=== PATIENT | male | born 1970 | race Caucasian/White ===

== ENCOUNTER 2023-03-26 08:47 | Day surgery (SDC) | payer BC, SELFPAY ==
[2023-03-26 09:13] VITALS: BP 107/69; PULSE 59; RESP 16; TEMP 36.3; O2SAT 98; BMI 26.5
[2023-03-26] MEDS: Lactated Ringers 1,000 ML 15 ML IV (09:15)
--- NOTE | 2023-03-26 09:49 | HP.PCM_ITS ---
History and Physical Date of Admission: 03/26/23 Visit Reasons:?Gastroesophageal reflux disease (GERD) Chief Complaint: GERD Allergies No Known Allergies Allergy (Verified 12/14/22 11:05) PFSH Medical History? Cholecystectomy planned Surgical History? H/O colonoscopy Family History? Grandmother AsthmaMother Breast cancerFather DepressionGrandfather Parkinson disease Social History? Smoking Status:? Former smoker alcohol intake:? current details:? beer substance use type:? does not use what type of physical activity do you participate in:? yoga, weight training and other details: cardio frequency:? other details: 4-5 days a week HPI HPI HPI: 52-year-old gentleman is being referred by Dr. Ronda Paiz for surgical consultation regarding gastroesophageal reflux disease intermittent compromise surgical consult recommendations will return to him.? The patient's had a previous cholecystectomy in 2005.? I had a colonoscopy in 2019.? These were performed in [place].? The patient's current concern is long-term reflux symptoms.? This became worse subsequent to his cholecystectomy.? He is started using a probiotic.? He is not on any acid suppression medication Has had reflux symptoms for at least 5 years.? Heartburn symptoms.? Is not completely sure what triggers it but notices when he goes on vacation that they change in diet and perhaps increased use of alcohol can be a problem.? He is very physically fit.? He likes rowing.? He was a previous runner.? He also does weightlifting. He has no family history of esophagogastric or colonic disease ROS General General: No weight change, appetite, fatigue, colon cancer, breast cancer or weakness HEENT HEENT: No difficulty swallowing, eye injury, eye surgery, swollen glands or hoarseness Endo Endocrine: No thyroid disease, diabetes mellitus, thyroid cancer, Hair loss, heat intolerance or cold intolerance Skin Skin: No rash or changing moles Breast Breast: No left breast lump, right breast lump, nipple discharge, breast pain, abnormal mammogram, abnormal US or breast enlargement Musc Musculoskeletal: No back problems, arthritis, rheumatoid arthritis, gout or joint pain Cardio Cardiovascular: No murmur, pacemaker, heart disease, atrial fibrillation, high blood pressure, heart attack, heart stent, palpitations, shortness of breat with exertion or chest pain Psych Psychiatric: Yes anxiety; No depression or hearing voices Resp Respiratory: No shortness of breath, No sleep apnea, No cough, No COPD, No asthma, No emphysema and No wheezing Gastro Gastrointestinal: No abdominal pain, No nausea or vomiting, Yes diarrhea, No constipation, No blood in stool, Yes acid reflux, No hemorrhoids, No ulcers, No gallbladder problem and No black,tarry stools [place] Hematologic: No blood thinners, No blood disorders, No bleeding, No anemia and No blood clots Neuro Neurologic: No system reviewed and no additional complaints, except as documented, No as per HPI, No abnormal gait, No abnormal hearing, No abnormal movements, No abnormal speech, No behavioral changes, No burning sensations, No confusion, No convulsions, No disequilibrium, No dizziness, No localized weakness, No frequent falls, No headache(s), No lack of coordination, No loss of vision, No memory loss, No numbness, No other visual disturbances, No radicular pain, No restless legs, No sensory deficit, No syncope, No tingling, No tremor(s), No weakness and No other Exam Const General: cooperative, healthy appearing, comfortable and no acute distress [facility] Head: normal to inspection Eyes General: appearance normal, both eyes and all related structures Neck Neck: normal visual inspection Chest Chest palpation & inspection: normal inspection of the chest Resp Effort & Inspection: normal respiratory effort Auscultation: clear to auscultation bilaterally Cardio Rate: regular rate Rhythm: regular rhythm GI Inspection: normal to inspection Palpation: soft and no hepatosplenomegaly Musc Cervical Spine: normal cervical lordosis Skin General: no rashes or lesions noted Neuro General: patient alert, patient awake and patient oriented x3 Extrem General: normal to inspection and no calf tenderness Psych Appearance: grossly normal Assessment and Plan Assessment and Plan (1) Gastroesophageal reflux disease: ?Plan: I recommended the patient a esophagogastroduodenoscopy with possible biopsy or polypectomy as indicated.? He is aware of technique, benefit, risk and alternatives.? He said an opportunity to ask and have questions answered.? Very careful inspection for any type of reflux changes will be noted.? I appreciate the opportunity of assisting with the surgical care. Copy: Dr. Ronda Wesley M.D., F.A.C.S. I have examined the patient and the H&P has been reviewed. There are no clinical changes since date of exam. Justino Wesley M.D., F.A.C.S.
--- NOTE | 2023-03-26 10:00 | EGD_PTH ---
PATIENT: GIULIANO RASHID LOC: EN U#:[id number] AGE/SX: 52/M ROOM: RE03/26/[address]: Dr. Justino Wesley MD : 1970 BED: DIS: 03/26/2023 SPEC #: [id number] RECD: 03/26/23 13:15 STATUS: TAHIR MUNIRA #: [id number] JOHN: 03/26/23 10:[address]: Justino Wesley DEPT: SURGICAL PATHOLOGY RECD BY: Kelsy Jones ENTERED: 03/26/23 13:37 SP TYPE: EGD BIOPSY [facility] DR: Dr. Ronda Paiz MD Tissues: A - Duodenum, NOS B - Gastric mucous membrane C - Esophagus, NOS D - Esophagus, NOS Procedures: Surgery Specimen Level IV HEADER OPERATION: EGD ([facility]) and biopsies PRE-OP DIAGNOSIS: GERD TISSUE SUBMITTED: A ? Duodenum biopsy, B ? Antrum biopsy and H. pylori and path, C ? Distal esophagus biopsy, D ? Mid esophagus biopsy MICROSCOPIC DIAGNOSIS A. Duodenum, biopsy: A fragment of duodenal mucosa with focal villous congestion, gastric metaplasia and nonspecific chronic inflammation. B. Antrum, biopsy: Moderate chronic active gastritis. C. Distal esophagus, biopsy: Fragments of benign squamous epithelium. D. Mid esophagus, biopsy: Fragments of squamous mucosa with chronic inflammation. SJ:rg 03/29/2023 COMMENT B. The results of immunohistochemistry for Helicobacter pylori will be reported separately ([id number]). MICROSCOPIC DESCRIPTION Slides are reviewed. GROSS DESCRIPTION A - Received in fixative is one container labeled with the patient's name and designated duodenum biopsy. The specimen consists of one irregular fragment of light benson soft tissue that measures 0.3 x 0.3 x 0.1 cm. The specimen is totally submitted in one cassette. B - Received in fixative is one container labeled with the patient's name and designated antral biopsy. The specimen consists of one irregular fragment of light benson soft tissue that measures 0.6 x 0.2 x 0.1 cm. The specimen is totally submitted in one cassette. C - Received in fixative is one container labeled with the patient's name and designated distal esophagus biopsy. The specimen consists of two irregular fragments of light benson soft tissue that in aggregate measure 1.0 x 0.7 x 0.1 cm. The specimen is totally submitted in one cassette. D - Received in fixative is one container labeled with the patient's name and designated mid esophagus biopsy. The specimen consists of one irregular fragment of light benson soft tissue that measures 0.7 x 0.3 x 0.1 cm. The specimen is totally submitted in one cassette. / AM:raciel 03/26/2023 TC:2 CPT: 26795 x4
--- NOTE | 2023-03-26 10:00 | IMM_PTH ---
PATIENT: GIULIANO RASHID LOC: EN U#:[id number] AGE/SX: 52/M ROOM: RE03/26/[address]: Dr. Justino Wesley MD : 1970 BED: DIS: 03/26/2023 SPEC #: [id number] RECD: 03/26/23 13:38 STATUS: TAHIR REQ #: [id number] JOHN: 03/26/23 10:[address]: Justino Wesley DEPT: IMMUNOHISTOCHEMISTRY RECD BY: Allie Martin ENTERED: 03/26/23 13:39 SP TYPE: IMMUNO OTHR DR: Dr. Ronda Paiz MD Tissues: B - Stomach, NOS Procedures: H Pylori (initial) PHYSICIAN & INSTITUTION [place] [address] SPECIMEN INFORMATION: Tissue Source: B - Antrum Clinical Info: GERD Specimen Number: [id number] CPT code: 32731 METHODOLOGY: Deparaffinized sections of prefer/formalin-fixed tissue or PAP/DQ stained slides are incubated with monoclonal/polyclonal antibodies/oligonucleotide probes. Localization is made via biotin free immunoperoxidase method. Appropriate controls are performed and reacted as expected. Results on target cell population are indicated in the following table: RESULTS: ANTIBODY / CLONE RESULT Block B H Pylori (polyclonal) positive These tests were developed and their performance characteristics determined by [facility]. They may not have been cleared or approved by the U.S. Food and Drug Administration. The FDA has determined that such clearance or approval is not necessary. The above immunohistochemical/dualISH markers are ordered and reviewed by the Pathologist. INTERPRETATION: B. Antrum, biopsy: Positive for numerous Helicobacter pylori organisms. SJ:raciel 03/29/2023
--- NOTE | 2023-03-26 10:53 | OP.EGD_ITS ---
Patient Name: Malik Gallardo Procedure Date: 03/26/2023 10:32 AM Date of : 1970 Age: 52 Procedure: Upper GI endoscopy Indications: Suspected esophageal reflux Providers: Justino Wesley MD Referring MD: Justino Wesley MD Medicines: See the Anesthesia note for documentation of the administered medications Complications: No immediate complications. Procedure: Pre-Anesthesia Assessment: - Prior to the procedure, a History and Physical was performed, and patient medications and allergies were reviewed. The patient's tolerance of previous anesthesia was also reviewed. The risks and benefits of the procedure and the sedation options and risks were discussed with the patient. All questions were answered, and informed consent was obtained. Prior Anticoagulants: The patient has taken no previous anticoagulant or antiplatelet agents. ASA Grade Assessment: II - A patient with mild systemic disease. After reviewing the risks and benefits, the patient was deemed in satisfactory condition to undergo the procedure. After obtaining informed consent, the endoscope was passed under direct vision. Throughout the procedure, the patient's blood pressure, pulse, and oxygen saturations were monitored continuously. The gastroscope was introduced through the mouth, and advanced to the second part of duodenum. The upper GI endoscopy was accomplished without difficulty. The patient tolerated the procedure well. Scope In: 10:40:47 AM Scope Out: 10:47:33 AM Total Procedure Duration Time 0 hours 6 minutes 46 seconds Findings: The middle third of the esophagus was normal. Biopsies were taken with a cold forceps for histology. A small hiatal hernia was present. Biopsies were taken with a cold forceps for histology. Diffuse mildly erythematous mucosa without bleeding was found in the gastric antrum. Biopsies were taken with a cold forceps for histology. The examined duodenum was normal. Biopsies were taken with a cold forceps for histology. Impression: - Normal middle third of esophagus. Biopsied. - Small hiatal hernia. Biopsied. - Erythematous mucosa in the antrum. Biopsied. - Normal examined duodenum. Biopsied. Some bilious reflux was noted on the antrum of the stomach. We will await pathology. Consider utilizing sucralfate if needed for symptoms. Recommendation: - Discharge patient to home. - Resume previous diet. - Continue present medications. - Telephone my office for pathology results in 1 week. Procedure Code(s): --- Professional --- 50124, Esophagogastroduodenoscopy, flexible, transoral; with biopsy, single or multiple Diagnosis Code(s): --- Professional --- K44.9, Diaphragmatic hernia without obstruction or gangrene K31.89, Other diseases of stomach and duodenum CPT copyright 2017 [employer]. All rights reserved. The codes documented in this report are preliminary and upon consulting it architect review may be revised to meet current compliance requirements. Justino Wesley MD 03/26/2023 10:53:19 AM This report has been signed electronically. Number of Addenda: 0 Note Initiated On: 03/26/2023 10:32 AM
[2023-03-26 10:54] VITALS: BP 107/69; BP 98/66; PULSE 64; RESP 14; TEMP 36.2; O2SAT 96
--- NOTE | 2023-03-26 10:54 | OP.CCLET_ITS ---
03/26/2023 Ronda Paiz [facility] [address] [place] [address] Re : Upper GI endoscopy procedure for Malik Gallardo Dear Dr. Paiz This procedure was performed on Sunday, March 26, 2023. My impressions and recommendations are as follows: Impressions : - Normal middle third of esophagus. Biopsied. - Small hiatal hernia. Biopsied. - Erythematous mucosa in the antrum. Biopsied. - Normal examined duodenum. Biopsied. Some bilious reflux was noted on the antrum of the stomach. We will await pathology. Consider utilizing sucralfate if needed for symptoms. Recommendations : - Discharge patient to home. - Resume previous diet. - Continue present medications. - Telephone my office for pathology results in 1 week. My findings are described in the full procedure note, which is enclosed. If I can be of further assistance, please feel free to contact me at Doctor phone number(s): Work: . Sincerely, Justino Wesley MD 03/26/2023 10:53:19 AM This report has been signed electronically.
[2023-03-26 10:55] VITALS: BP 107/69; BP 99/66; PULSE 54; RESP 16; O2SAT 97
[2023-03-26 11:00] VITALS: BP 107/69; BP 98/67; PULSE 55; RESP 16; O2SAT 98
[2023-03-26 11:07] VITALS: BP 103/66; BP 107/69; PULSE 51; RESP 16; O2SAT 98
[2023-03-26 11:32] VITALS: BP 107/69
== END 2023-03-26 11:33 | disposition home or self-care (01) ==
LOC: EN 08:49 → AC 08:50
PROVIDERS: PCP Internal Medicine; Referring Provider Internal Medicine; Visit Provider Surgery
PROC: 0DJ08ZZ Inspection of Upper Intestinal Tract, Via Natural or Artificial Opening Endoscopic (ICD-10-PCS; CPT 43235; principal; 2023-03-26 09:55)
DX: K29.00 Acute gastritis without bleeding (principal); K21.00 Gastro-esophageal reflux disease with esophagitis, without bleeding; K44.9 Diaphragmatic hernia without obstruction or gangrene; K31.89 Other diseases of stomach and duodenum; Z87.891 Personal history of nicotine dependence
CPT/HCPCS: 43239; 88305; 88342; J7120; J2405

== ENCOUNTER → 2024-08-11 | Outpatient (CLI) | payer OTHER, SELFPAY ==
[2024-08-11 17:49] LABS: Absolute Lymphocyte Count 1.46 X10^3/uL (0.83-4.51); Basophil# 0.06 X10^3/uL; Basophil% 1.2 % (0-1); Eosinophil# 0.09 X10^3/uL; Eosinophils% 1.8 % (0-5); Lymphocyte # 1.46 X10^3/ul (0.83-4.51); Lymphocyte % 29.8 % (19-41); Mean Corp Hgb Conc 33.3 g/dL (32-36); Mean Corpuscular Hgb 28.6 pg (27.0-32.0); Mean Corpuscular Volume 85.7 fL (80-94); Mean Platelet Vol. 9.5 fl (6.2-12.0); Monocyte# 0.34 X10^3/uL; Monocyte% 6.9 % (0-10); NRBC Flagged by Analyzer 0 % (0-5); Neutrophil # 2.95 X10^3/uL (2.7-7.7); Neutrophil % 60.3 % (47-70); Platelet Count 352 K/mm3 (150-450); RBC Distribution Width CV 12.6 % (11.6-14.6); Red Blood Count 5.25 M/mm3 (4.6-6.2); White Blood Count 4.9 K/mm3 (4.4-11.0)
[2024-08-11 18:19] LABS: ALB/GLOB Ratio 1.1 RATIO (0.9-2.4); AST(SGOT) 18 U/L (15-37); Alanine Aminotransfer ALT/SGPT 27 U/L (16-61); Albumin, Serum 3.8 g/dL (3.2-5.0); Alkaline Phosphatase 70 U/L (45-117); Anion Gap 5 (5-15); BUN 15 mg/dL (7-18); BUN/Creat Ratio 14.4 RATIO (10-20); Calcium,Total 8.8 mg/dL (8.5-10.1); Chloride 107 mmol/L (98-107); Creatinine, Serum 1.04 mg/dL (0.70-1.30); EST Glomerular Filtration Rate 79 mL/min (>60); Est Glom Filt Rate - Afr Amer 96 mL/min (>60); Globulin 3.5 g/dL (2.2-4.2); Glucose 75 mg/dL (74-106); PSA,Total - Annual Screen 1.31 ng/mL (0.00-4.00); Potassium 3.7 mmol/L (3.5-5.1); Protein, Total 7.3 g/dL (6.4-8.2); Sodium Level 140 mmol/L (136-145); Uric Acid 7.3 mg/dL (3.5-7.2)
== END | disposition home or self-care (01) ==
LOC: MFPLAB 14:06
PROVIDERS: PCP Family Medicine; Visit Provider Family Medicine
DX: M10.9 Gout, unspecified (principal); Z80.42 Family history of malignant neoplasm of prostate
CPT/HCPCS: 36415; 80053; 84153; 84550; 85025; G0103

== ENCOUNTER 2025-03-04 23:30 | Emergency (ER) | payer OTHER, SELFPAY ==
[2025-03-04 23:32] VITALS: BP 150/96; PULSE 59; RESP 18; TEMP 36.8; O2SAT 100; BMI 28.4
--- NOTE | 2025-03-05 00:12 | ED.RN ---
Pt rang call light and asked when physician was going to be in to see him. This nurse to room, apologized for long wait, informed pt that doctor would be in as soon as possible. Pt rolled his eyes and states well I am in a lot of pain, I could be sitting at home doing this. Again, apologized for wait and informed pt of unusually busy department and physician was seeing patients in order of severity and arrival, and he would be seen as soon as physician is available. Pt again rolls eyes and states well if he can't seem to find his way in here within the next thirty minutes I am leaving. Responded to pt that is absolutely his choice and that he may leave if he wants to, and again apologized.
--- NOTE | 2025-03-05 00:25 | EX.ED.UPPERE ---
HPI History of Present Illness Chief Complaint: Upper Extremity Injury Informant: patient Narrative Narrative: Patient is a 54-year-old male who reports no significant past medical history. He states a few days ago he was using a mechanical saw. He states that he would steady the piece of wood with his right hand and hold the soft handle with his left. He states that there was no direct trauma to the left wrist and no sudden onset of pain. However over the last 2 to 3 days he has noticed increased swelling pain and redness of the left wrist. It is to the point where he cannot sleep secondary to the persistent pain and it hurts to have any type of covering over top of the joint. He denies any new medications or exposures. He denies any history of immunosuppression. He states however because of the persistent pain and swelling he presents for evaluation [facility] Medical History (Updated 03/05/25 @ 00:[address] Joselito Saucedo DO) Anxiety Alcohol use Gastric reflux Former smoker History of echocardiogram Home Medications ?Medication ?Instructions ?Recorded ?Last Taken ?Type oxycodone-acetaminophen 5 mg-325 1 tab PO Q6H PRN pain 3 days #12 03/05/25 Unknown Rx mg tablet (Percocet) tabs prednisone 10 mg tablet 10 mg PO DAILY #21 tabs 03/05/25 Unknown Rx Allergy/AdvReac Type Severity Reaction Status Date / Time No Known Allergies Allergy Verified 03/04/25 23:31 Family History Grandmother Asthma Mother Breast cancer Father Depression Grandfather Parkinson disease Surgical History Hx laparoscopic cholecystectomy H/O colonoscopy Social History Smoking Status: Former smoker alcohol intake: current details: beer substance use type: does not use what type of physical activity do you participate in: yoga, weight training and other details: cardio frequency: other details: 4-5 days a week ROS ROS ED Constitutional Constitutional ED: Denies chills or fever(s) ENT ENT ED: Denies sore throat Cardiovascular Cardiovascular: Denies chest pain Respiratory/Chest Respiratory/Chest: Denies cough or dyspnea Gastrointestinal Gastrointestinal: Denies abdominal pain, diarrhea, nausea or vomiting Musculoskeletal Musculoskeletal: Reports other Details: Positive left wrist pain Integumentary Reports other Details: Positive redness left wrist Neurologic Neurologic: Denies headache(s) or paresthesias Hematologic/Lymphatic Hematologic/Lymphatic: Denies easy bleeding or easy bruising EXAM Physical Exam Const Vital Signs: 03/04/25 23:32 Temperature 98.2 F Temperature Source Oral Pulse Rate 59 L Respiratory Rate 18 Blood Pressure 150/96 H Blood Pressure Mean 114 Pulse Ox 100 Oxygen Delivery Method Room Air Positive well nourished and well developed General Appearance ED: well developed HEENT HEENT Narrative: Normocephalic atraumatic Eyes PERRL and EOMs intact bilaterally Neck full ROM and supple Resp normal respiratory effort and clear to auscultation bilaterally Cardio regular rate and regular rhythm Extremity Extremity Narrative: Left upper extremity is neurovascularly intact; AIN/PIN are intact and normal. There is swelling of the left wrist mainly along the dorsal aspect with overlying erythema and warmth. No induration or fluctuance. No joint effusion noted. Active and passive range of motion is decreased secondary to pain. No lymphangitic streaking. No crepitus palpated. There is diffuse pain with light palpation of the left wrist. Remainder of the exam is normal Neuro oriented x3, CN's II-XII intact bilaterally and no sensory deficits noted Sensorium / Orientation: alert Psych mental status grossly normal Skin Skin Narrative: Soft tissue changes to the left wrist as documented above MDM MDM MDM Narrative Medical decision making narrative: Patient arrived to the ER hypertensive but otherwise with stable vitals. He reported gradual onset of pain to the left wrist over the last few days. 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 His history and exam is most consistent with gout. Without history of immunosuppression or fever I have low concern for cellulitis and by physical exam there is no abscess formation. Therefore this time I do not feel there is need for imaging or laboratory studies and patient can simply be treated secondary to his acute gout and is otherwise safe for discharge. History & Record Review Discussion w/independent historian: Patient Discharge Plan Triage Chief Complaint: Upper Extremity Injury ED Provider: Joselito Saucedo Dx/Rx/DC Orders Clinical Impression: Acute gout of left wrist Instructions: ED Gout, ED Gout Diet Prescriptions: New oxycodone-acetaminophen [Percocet] 5-325 mg tablet 1 tab PO Q6H PRN (Reason: pain) 3 Days Qty: 12 0RF prednisone 10 mg tablet 10 mg PO DAILY Qty: 21 0RF Rx Instructions: 6 pills by mouth day 1, 5 pills by mouth day 2, 4 pills by mouth day 3, 3 pills by mouth day 4, 2 pills by mouth day 5, 1 pill by mouth a 6 Primary Care Provider: Damián Rivas Referrals: Damián Rivas MD [Primary Care Provider] - Activity Restrictions/Additional Instructions: Your symptoms are consistent with gout. Please take the prescribed medication as directed to help resolve the inflammation. If you develop a fever of 100.4 or the redness continues to track up your arm or you have any further concerns please return to the ER for repeat evaluation Print Language: Pashto Disposition Disposition: Home, Self Care Discharge Date/Time: 03/05/25 01:04
[2025-03-05] MEDS: predniSONE 20 MG Tablet 60 MG PO (00:39)
== END 2025-03-05 01:04 | disposition home or self-care (01) ==
PROVIDERS: Emergency Provider Emergency Medicine; PCP Family Medicine; Visit Provider Emergency Medicine
DX: M10.032 Idiopathic gout, left wrist (principal); Z87.891 Personal history of nicotine dependence
CPT/HCPCS: 99282

== ENCOUNTER → 2025-03-22 | Outpatient (CLI) | payer OTHER, SELFPAY ==
--- OUTSIDE RECORDS SUMMARY | 2025-03-22 10:56 | XMS RPT_ITS | CCD ---
Author Organization [facility] CliniSysd Care Team Providers Care [employer] Officer Name Role Phone LUIS LOSON Admitting Unavailable LUIS OLSON Primary Care Unavailable LUIS OLSON Attending Unavailable GINA COREY Attending Unavailable RONY GAFFNEY UnavailLUIS Whitlock Primary Care Unavailable GINA COREY Admitting Unavailable LUIS OLSON Admitting Unavailable LUIS OLSON Primary Care Unavailable LUIS OLSON Attending Unavailable Casimiro MIMS, Ritika Serrano Unavailable [facility] Doctor, Out of Primary Care Provider [facility] Dr. Ronda Mckeon Attending Provider [phone] Dr. Ronda Paiz Primary Care Provider Dr. Ronda Paiz Referring Provider [phone] Dr. Luis Wesley Attending Provider Dr. Luis Wesley Other Provider Dr. Gina Rivas MD Primary Care Provider [phone] Dr. Joselito Saucedo DO Emergency Provider Gina iRvas Attending Unavailable Gina Rivas Primary Care Unavailable Joselito Saucedo Attending Unavailable Gina Rivas Primary Care Unavailable Medications Current Medications Medication Drug Class(es) Dates Sig (Normalized) Sig (Original) acetaminophen 325 mg / oxyCODONE hydrochloride 5 mg oral tablet (1 source) Opioid Agonist Start: 03-05-2025 take 1 tablet by mouth every six hours as needed for pain Oxycodone-Acetami nophen (Percocet) 5-325 mg tablet Active 1 {tbl} PO EVERY 6 HOURS as needed for pain 12 3 March 05, 2025 Start: 03-05-2025 take 1 tablet by randi th every six hours as needed for pain Oxycodone-Acetaminophen (Percocet) 5-325 mg tablet Active 1 {tbl} PO EVERY 6 HOURS as needed for pain 12 3 March 05, 2025 methylPREDNISolone 4 mg oral tablet (1 source) Corticosteroid Start: 11-24-2021 End: 11-30-2021 MEDROL 4 MG TABS Take 1 tablet by mouth as directed Take 6 tablets by mouth the first day, 5 tablets the following day... down to 1 tablet per day methylprednisolone [id number] Ritika Kirkpatrick PA-C predniSONE 10 mg oral tablet (1 source) Start: 03-05-2025 Prednisone 10 mg tablet Active 10 mg PO DAILY March 05, 2025 12:00am 6 pills by mouth day 1, 5 pills by mouth day 2, 4 pills by mouth day 3, 3 pills by mouth day 4, 2 pills by mouth day 5, 1 pill by mouth a 6 Completed/Discontinued Medications Medication Drug Class(es) Dates Sig (Normalized) Sig (Original) bismuth subsalicylate 525 mg oral tablet (1 source) Bismuth Start: 03-30-2023 End: 03-04-2025 take 8 tablets by mouth every twenty-four hours Bismuth Subsalicylate 525 mg tablet Discontinued 525 mg PO .QID 56 March 30, 2023 12:00am March 04, 2025 11:31pm do not exceed 8 doses in a 24 hour period lactobacillus acidophilus [id number] unt oral capsule (2 sources) Start: 03-23-2023 End: 03-04-2025 take 10 capsules by mouth once daily Lactobacillus Acidophilus (Probiotic) 10 billion cell Capsule Discontinued 52944 NMA PO DAILY March 23, 2023 12:00am March 04, 2025 11:31pm metroNIDAZOLE 250 mg oral tablet (1 source) Nitroimidazole Antimicrobial Start: 03-30-2023 End: 03-04-2025 take 1 tablet by mouth four times daily Metronidazole 250 mg tablet Discontinued 250 mg PO .qid 56 March 30, 2023 12:00am March 04, 2025 11:31pm omeprazole 40 mg delayed release oral capsule (1 source) Proton Pump Inhibitor Start: 03-30-2023 End: 03-04-2025 take 1 capsule by mouth twice daily Omeprazole 40 mg capsule,delayed release(DR/EC) Discontinued 40 mg PO TWICE A DAY 14 March 30, 2023 12:00am March 04, 2025 11:31pm tetracycline hydrochloride 500 mg oral capsule (1 source) Tetracycline-class Antimicrobial Start: 03-30-2023 End: 03-04-2025 take 1 capsule by mouth every six hours Tetracycline 500 mg capsule Discontinued 500 mg PO EVERY 6 HOURS 56 March 30, 2023 12:00am March 04, 2025 11:32pm Problems Active Problems Problem Classification Problem Date Documented Da te Episodic/Chronic Administrative/social admission (1 source) Persons encountering health services in other specified circumstances; Translations: [Other reasons for seeking consultation] 12-14-2022 Episodic Cardiac dysrhythmias (2 sources) Palpitations; Translations: [PALPITATIONS] Onset: 08-08-2020 Episodic Esophageal disorders (4 sources) Gastro-esophageal reflux disease with esophagitis; Translations: [Chronic reflux esophagitis] 12-14-2022 Chronic Gout and other crystal arthropathies (2 sources) 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; Translations: [Gout, unspecified] Onset: 09-06-2024 03-05-2025 Chronic Other congenital anomalies (1 source) Congenital metatarsus adductus; 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] Onset: 08-11-2017 08-11-2017 Chronic Other non-traumatic joint disorders (1 source) Pain in wrist; Translations: [Pain in left wrist] Onset: 11-24-2021 11-24-2021 Episodic Other non-traumatic joint disorders (1 source) Pain in left wrist; Translations: [Pain in left wrist] Onset: 03-09-2025 Episodic Past or Other Problems Problem Classification Problem Date Documented Date Episodic/Chronic Acquired foot deformities (2 sources) Acquired cavovarus deformity of right foot; Translations: [Other acquired deformities of right foot] Onset: 08-11-2017 08-11-2017 Episodic Acquired foot deformities (2 sources) Acquired cavovarus deformity of left foot; Translations: [Other acquired deformities of left foot] Onset: 08-11-2017 08-11-2017 Episodic Malaise and fatigue (1 source) Other malaise; Translations: [OTHER MALAISE] Onset: 11-15-2019 Episodic Other and unspecified benign neoplasm (1 source) Benign neoplasm of descending colon; Translations: [BENIGN NEOPLASM OF DESCENDING COLON] Onset: 04-04-2020 Episodic Other connective tissue disease (1 source) Metatarsalgia; Translations: [Metatarsalgia, left foot] Onset: 08-11-2017 08-11-2017 Episodic Other connective tissue disease (1 source) Disorder of hip; Translations: [Other symptoms and signs involving the musculoskeletal system] Onset: 08-11-2017 08-11-2017 Episodic Other screening for suspected conditions (not mental disorders or infectious disease) (6 sources) Encounter for screening for malignant neoplasm of colon; Translations: [Encounter for screening for other disorder] Onset: 11-15-2019 Episodic Unclassified (1 source) Problem Results Test Name Value Interpretation Reference Range Facility Emergency Department Summary on 03-05-2025 Emergency Department Summary [facility] Medical Records Department [address] [place] [address] Emergency Department Summary 03/05/25 MR#: [id number] Acct: [id number] Name: GIULIANO RASHID Rep #: [id number] : 1970 54 From: Joselito Saucedo DO PCP: Dr. Gina Rivas MD Status:DEP ER Location: ED HPI History of Present Illness Chief Complaint: Upper Extremity Injury Informant: patient Narrative Narrative: Patient is a 54-year-old male who reports no significant past medical history. He states a few days ago he was using a mechanical saw. He states that he would steady the piece of wood with his right hand and hold the soft handle with his left. He states that there was no direct trauma to the left wrist and no sudden onset of pain. However over the last 2 to 3 days he has noticed increased swelling pain and redness of the left wrist. It is to the point where he cannot sleep secondary to the persistent pain and it hurts to have any type of covering over top of the joint. He denies any new medications or exposures. He denies any history of immunosuppression. He states however because of the persistent pain and swelling he presents for evaluation [facility] Medical History (Updated 03/05/25 @ 00:[address] Joselito Saucedo DO) Anxiety Alcohol use Gastric reflux Former smoker History of echocardiogram Home Medications ???Medication ???Instructions ???Recorded ???Last Taken ???Type oxycodone-acetaminoph en 5 mg-325 1 tab PO Q6H PRN pain 3 days #12 0 6/02/25 Unknown Rx mg tablet (Percocet) tabs prednisone 10 mg tablet 10 mg PO DAILY #21 tabs 03/05/25 U nknown Rx Allergy/AdvReac Type Severity Reaction Status Date / Time No Known Allergies Allergy Verified 03/04/25 23:31 Family History Grandmother Asthma Mother Breast cancer Father Depression Grandfather Parkinson disease Surgical History Hx laparoscopic cholecystectomy H/O colonoscopy Social History Smoking Status: Former smoker alcohol intake: current details: beer substance use type: does not use what type of physical activity do you participate in: yoga, weight training and other details: cardio frequency: other details: 4-5 days a week ROS ROS ED Constitutional Constitutional ED: Denies chills or fever(s) ENT ENT ED: Denies sore throat Cardiovascular Cardiovascular: Denies chest pain Respiratory/Chest Respiratory/Chest: Denies cough or dyspnea Gastrointestinal Gastrointestinal: Denies abdominal pain, diarrhea, nausea or vomiting Musculoskeletal Musculoskeletal: Reports other Details: Positive left wrist pain Integumentary Reports other Details: Positive redness left wrist Neurologic Neurologic: Denies headache(s) or paresthesias Hematologic/Lymphatic Hematologic/Lymphatic : Denies easy bleeding or easy bruising EXAM Physical Exam Const Vital Signs: 03/04/25 23:32 Temperature 98.2 F Temperature Source Oral Pulse Rate 59 L Respiratory Rate 18 Blood Pressure 150/96 H Blood Pressure Mean 114 Pulse Ox 100 Oxygen Delivery Method Room Air Positive well nourished and well developed General Appearance ED: well developed HEENT HEENT Narrative: Normocephalic atraumatic Eyes PERRL and EOMs intact bilaterally Neck full ROM and supple Resp normal respiratory effort and clear to auscultation bilaterally Cardio regular rate and regular rhythm Extremity Extremity Narrative: Left upper extremity is neurovascularly intact; AIN/PIN are intact and normal. There is swelling of the left wrist mainly along the dorsal aspect with overlying erythema and warmth. No induration or fluctuance. No joint effusion noted. Active and passive range of motion is decreased secondary to pain. No lymphangitic streaking. No crepitus palpated. There is diffuse pain with light palpation of the left wrist. Remainder of the exam is normal Neuro oriented x3, CN's II-XII intact bilaterally and no sensory deficits noted Sensorium / Orientation: alert Psych mental status grossly normal Skin Skin Narrative: Soft tissue changes to the left wrist as documented above MDM MDM MDM Narrative Medical decision making narrative: Patient arrived to the ER hypertensive but otherwise with stable vitals. He reported gradual onset of pain to the left wrist over the last few days. 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 His history and exam is most consistent with gout. Without history of immunosuppression or fever I have low concer (more content not included)... Normal [facility] CBC W/Diff, Automatedon 11-0 -2023 Absolute Lymph 1.46 X10 3/uL Normal 0.83-4.51 [facility] Comment on above: Performed By: #### L 100.0100, L500.4050, L501.1400, L501.9910 #### [facility] [address] [place], [address] Absolute Neut 3.0 X10 3/uL Normal 2.0-7.7 [facility] Comment on above: Performed By: #### L 100.0100, L500.4050, L501.1400, L501.9910 #### [facility] [address] [place], [address] Basophils/100 WBC (Bld) 1.2 % High 0-1 [facility] Comment on above: Performed By: #### L 100.0100, L500.4050, L501.1400, L501.9910 #### [facility] [address] [place], [address] Eosinophils/100 WBC (Bld) 1.8 % Normal 0-5 [facility] Comment on above: Performed By: #### L 100.0100, L500.4050, L501.1400, L501.9910 #### [facility] [address] [place], [address] Erythrocyte distribution width (RBC) [Ratio] 12.6 % Normal 11.6-14.6 [facility] Comment on above: Performed By: #### L 100.0100, L500.4050, L501.1400, L501.9910 #### [facility] [address] [place], [address] Hematocrit (Bld) [Volume fraction] 45.0 % Normal 40-54 [facility] Comment on above: Performed By: #### L 100.0100, L500.4050, L501.1400, L501.9910 #### [facility] [address] [place], [address] Hemoglobin (Bld) [Mass/Vol] 15.0 g/dL Normal 13.0-16.5 [facility] Comment on above: Performed By: #### L 100.0100, L500.4050, L501.1400, L501.9910 #### [facility] [address] [place], [address] IG% 0.000 Normal 0.0-0.9 [facility] Comment on above: Result Comment: IG% - Immature Granulocytes (promyelocytes, myelocytes and metamyelocytes) > 1% indicates that a LEFT SHIFT is Present. Performed By: #### L 100.0100, L500.4050, L501.1400, L501.9910 #### [facility] [address] [place], [address] Lymphocytes/100 WBC (Bld) 29.8 % Normal 19-41 [facility] Comment on above: Performed By: #### L 100.0100, L500.4050, L501.1400, L501.9910 #### [facility] [address] [place], [address] MCH (RBC) [Entitic mass] 28.6 pg Normal 27.0-32.0 [facility] Comment on above: Performed By: #### L 100.0100, L500.4050, L501.1400, L501.9910 #### [facility] [address] [place], [address] MCHC (RBC) [Mass/Vol] 33.3 g/dL Normal 32-36 [facility] Comment on above: Performed By: #### L 100.0100, L500.4050, L501.1400, L501.9910 #### [facility] [address] [place], [address] MCV (RBC) [Entitic vol] 85.7 fL Normal 80-94 [facility] Comment on above: Performed By: #### L 100.0100, L500.4050, L501.1400, L501.9910 #### [facility] [address] [place], [address] Monocytes/100 WBC (Bld) 6.9 % Normal 0-10 [facility] Comment on above: Performed By: #### L 100.0100, L500.4050, L501.1400, L501.9910 #### [facility] [address] [place], [address] Neutrophils/100 WBC (Bld) 60.3 % Normal 47-70 [facility] Comment on above: Performed By: #### L 100.0100, L500.4050, L501.1400, L501.9910 #### [facility] [address] [place], [address] Nucleated RBC (Bld) [#/Vol] 0 10*3/uL Normal 0-5 [facility] Comment on above: Performed By: #### L 100.0100, L500.4050, L501.1400, L501.9910 #### [facility] [address] [place], [address] Platelet mean volume (Bld) [Entitic vol] 9.5 fL Normal 6.2-12.0 [facility] Comment on above: Performed By: #### L 100.0100, L500.4050, L501.1400, L501.9910 #### [facility] [address] [place], [address] Platelets (Bld) [#/Vol] 352 10*3/uL Normal 150-450 [facility] Comment on above: Performed By: #### L 100.0100, L500.4050, L501.1400, L501.9910 #### [facility] [address] [place], [address] RBC (Bld) [#/Vol] 5.25 10*6/uL Normal 4.6-6.2 [facility] Comment on above: Performed By: #### L 100.0100, L500.4050, L501.1400, L501.9910 #### [facility] [address] [place], [address] RDW SD 39.0 fl Normal 35.1-43.9 [facility] Comment on above: Performed By: #### L 100.0100, L500.4050, L501.1400, L501.9910 #### [facility] [address] [place], [address] WBC (Bld) [#/Vol] 4.9 10*3/uL Normal 4.4-11.0 [facility] Comment on above: Performed By: #### L 100.0100, L500.4050, L501.1400, L501.9910 #### [facility] [address] [place], [address] Comprehensive Metabolic Prof ilon 08-11-2024 Albumin [Mass/Vol] 3.8 g/dL Normal 3.2-5.0 [facility] Comment on above: Performed By: #### L 100.0100, L500.4050, L501.1400, L501.9910 #### [facility] [address] [place], [address] Albumin/Globulin [Mass ratio] 1.1 {ratio} Normal 0.9-2.4 [facility] Comment on above: Performed By: #### L 100.0100, L500.4050, L501.1400, L501.9910 #### [facility] [address] [place], [address] ALK P 70 U/L Normal 45-117 [facility] Comment on above: Performed By: #### L 100.0100, L500.4050, L501.1400, L501.9910 #### [facility] [address] [place], [address] ALT [Catalytic activity/Vol] 27 U/L Normal 16-61 [facility] Comment on above: Performed By: #### L 100.0100, L500.4050, L501.1400, L501.9910 #### [facility] [address] [place], [address] AST [Catalytic activity/Vol] 18 U/L Normal 15-37 [facility] Comment on above: Performed By: #### L 100.0100, L500.4050, L501.1400, L501.9910 #### [facility] [address] [place], [address] Bilirubin [Mass/Vol] 0.40 mg/dL Normal 0.20-1.00 [facility] Comment on above: Result Comment: For patients on eltrombopag therapy, use of Dimension [place] TBIL is not recommended. Performed By: #### L 100.0100, L500.4050, L501.1400, L501.9910 #### [facility] [address] [place], [address] BUN/CRE 14.4 RATIO Normal 10-20 [facility] Comment on above: Performed By: #### L 100.0100, L500.4050, L501.1400, L501.9910 #### [facility] [address] [place], [address] CA,Total 8.8 mg/dL Normal 8.5-10.1 [facility] Comment on above: Performed By: #### L 100.0100, L500.4050, L501.1400, L501.9910 #### [facility] [address] [place], [address] Chloride [Moles/Vol] 107 mmol/L Normal 98-107 [facility] Comment on above: Performed By: #### L 100.0100, L500.4050, L501.1400, L501.9910 #### [facility] [address] [place], [address] CO2 [Moles/Vol] 28.0 mmol/L Normal 21.0-32.0 [facility] Comment on above: Performed By: #### L 100.0100, L500.4050, L501.1400, L501.9910 #### [facility] [address] [place], [address] Creatinine [Mass/Vol] 1.04 mg/dL Normal 0.70-1.30 [facility] Comment on above: Result Comment: The validity of the calculated GFR GFRAA in patients over 70 years has not been determined. Clinical correlation is essential. Performed By: #### L 100.0100, L500.4050, L501.1400, L501.9910 #### [facility] [address] [place], [address] EST GFR - AA 96 mL/min Normal >60 [facility] Comment on above: Result Comment: Afri can Estonian GFR Calc Performed By: #### L 100.0100, L500.4050, L501.1400, L501.9910 #### [facility] [address] [place], [address] GAP 5 Normal 5-15 [facility] Comment on above: Performed By: #### L 100.0100, L500.4050, L501.1400, L501.9910 #### [facility] [address] [place], [address] GFR/1.73 sq M.predicted among non-blacks MDRD (S/P/Bld) [Vol rate/Area] 79 mL/min/{1.73_m2} Normal >60 [facility] Comment on above: Result Comment: Non- GFR Calc Performed By: #### L 100.0100, L500.4050, L501.1400, L501.9910 #### [facility] [address] [place], [address] Globulin (S) [Mass/Vol] 3.5 g/dL Normal 2.2-4.2 [facility] Comment on above: Performed By: #### L 100.0100, L500.4050, L501.1400, L501.9910 #### [facility] [address] [place], [address] Glucose [Mass/Vol] 75 mg/dL Normal 74-106 [facility] Comment on above: Performed By: #### L 100.0100, L500.4050, L501.1400, L501.9910 #### [facility] [address] [place], [address] Potassium [Moles/Vol] 3.7 mmol/L Normal 3.5-5.1 [facility] Comment on above: Performed By: #### L 100.0100, L500.4050, L501.1400, L501.9910 #### [facility] [address] [place], [address] Sodium [Moles/Vol] 140 mmol/L Normal 136-145 [facility] Comment on above: Performed By: #### L 100.0100, L500.4050, L501.1400, L501.9910 #### [facility] [address] [place], [address] T PROT 7.3 g/dL Normal 6.4-8.2 [facility] Comment on above: Performed By: #### L 100.0100, L500.4050, L501.1400, L501.9910 #### [facility] [address] [place], [address] Urea nitrogen [Mass/Vol] 15 mg/dL Normal 7-18 [facility] Comment on above: Performed By: #### L 100.0100, L500.4050, L501.1400, L501.9910 #### [facility] [address] [place], [address] PSA,Total - Annual Screenon 08-11-2024 PSA,TOT SCREEN 1.31 ng/mL Normal 0.00-4.00 [facility] Comment on above: Result Comment: This test was performed using the TPSA assay method for the [employer] chemistry system. Values obtained with different assay methods cannot be used interchangably. When changing PSA assays in the course of monitoring a patient, additional sequential testing should be carried out to confirm baseline values. Performed By: #### L 100.0100, L500.4050, L501.1400, L501.9910 #### [facility] [address] [place], [address] Uric Acidon 08-11-2024 URIC 7.3 mg/dL High 3.5-7.2 [facility] Comment on above: Result Comment: The drugs N-Acetylcysteine and Metamizole may falsely depress this assay. Performed By: #### L 100.0100, L500.4050, L501.1400, L501.9910 #### [facility] [address] [place], [address] Clinical Summary: Gladys noe 11-24-2021 [facility] [place] Invalid Interpretation Code [facility] - [facility] Work Phone: [facility] Surgical Pathology Depar tmenton 03-15-2020 [facility] Surgical Pathology Department Name GIULIANO RASHID Pathologist: SUDARSHAN PHILIP MD Date of Procedure: 03/15/2020 Date Received: 03/15/2020 Date Reported 03/18/2020 Submitting Physician: GINA COREY MD Location: [facility] Other External # [id number] FINAL DIAGNOSIS A. DESCENDING COLON, POLYPECTOMY: --TUBULAR ADENOMA. Electronically Signed Out By SUDARSHAN PHILIP MD/[facility] By the signature on this report, the individual or group listed as making the Final Interpretation/Diagno sis certifies that they have reviewed this case. Clinical History: Average risk screening Specimens Submitted As: A: DESCENDING COLON POLYP Other Case Numbers [id number] Gross Description: Received in formalin, labeled with the patient's name and hospital number and descending polyp, is a fragment of benson, soft tissue measuring 0.3 x 0.2 x 0.1 cm. The specimen is submitted in toto in one cassette. DPG dpg/03/16/2020 Normal [facility] Comment on above: Performed By: #### U HCS #### [facility] Surgical Pathology Department [address] [address] [facility] [address] CBC with Diffon 11-14-2019 Basophils (Bld) [#/Vol] 0.0 x(10)3/cumm Normal 0.0-0.1 [facility] Comment on above: Performed By: #### C BCDIFF #### [facility] [address] [place] [address] Basophils/100 WBC (Bld) 1.3 % High 0.0-1.0 [facility] Comment on above: Performed By: #### C BCDIFF #### [facility] [address] [place] [address] Eosinophils (Bld) [#/Vol] 0.0 x(10)3/cumm Normal 0.0-0.4 [facility] Comment on above: Performed By: #### C BCDIFF #### [facility] [address] [place] [address] Eosinophils/100 WBC (Bld) 1.2 % Normal 0.0-6.1 [facility] Comment on above: Performed By: #### C BCDIFF #### [facility] [address] [place] [address] 17882 Erythrocyte distribution width (RBC) [Ratio] 13.5 % Normal 11.1-15.3 [facility] Comment on above: Performed By: #### C BCDIFF #### [facility] [address] [place] [address] 26312 Hematocrit (Bld) [Volume fraction] 45.8 % Normal 37.6-50.6 [facility] Comment on above: Performed By: #### C BCDIFF #### [facility] [address] [place] [address] 11080 Hemoglobin (Bld) [Mass/Vol] 15.7 g/dL Normal 12.9-17.5 [facility] Comment on above: Performed By: #### C BCDIFF #### [facility] [address] [place] [address] 28103 Lymphocytes (Bld) [#/Vol] 1.3 x(10)3/cumm Normal 0.8-2.9 [facility] Comment on above: Performed By: #### C BCDIFF #### [facility] [address] [place] [address] 26877 Lymphocytes/100 WBC (Bld) 33.4 % Normal 12.2-42.6 [facility] Comment on above: Performed By: #### C BCDIFF #### [facility] [address] [place] [address] 80930 MCH (RBC) [Entitic mass] 29.3 pg Normal 27.2-33.6 [facility] Comment on above: Performed By: #### C BCDIFF #### [facility] [address] [place] [address] 26743 MCHC (RBC) [Mass/Vol] 34.3 g/dL Normal 32.9-35.3 [facility] Comment on above: Performed By: #### C BCDIFF #### [facility] [address] [place] [address] 84093 MCV (RBC) [Entitic vol] 85.3 fL Normal 81.3-96.7 [facility] Comment on above: Performed By: #### C BCDIFF #### [facility] [address] [place] [address] 78998 Monocytes (Bld) [#/Vol] 0.3 x(10)3/cumm Normal 0.2-0.8 [facility] Comment on above: Performed By: #### C BCDIFF #### [facility] [address] [place] [address] 44459 Monocytes/100 WBC (Bld) 9.1 % Normal 3.3-11.6 [facility] Comment on above: Performed By: #### C BCDIFF #### [facility] [address] [place] [address] 10628 Neutrophils (Bld) [#/Vol] 2.1 x(10)3/cumm Normal 1.3-7.4 [facility] Comment on above: Performed By: #### C BCDIFF #### [facility] [address] [place] [address] 39620 Neutrophils/100 WBC (Bld) 55.0 % Normal 44.9-78.8 [facility] Comment on above: Performed By: #### C BCDIFF #### [facility] [address] [place] [address] 46765 Platelet mean volume (Bld) [Entitic vol] 8.0 fL Normal 6.4-10.0 [facility] Comment on above: Performed By: #### C BCDIFF #### [facility] [address] [place] [address] 10283 Platelets (Bld) [#/Vol] 297 x(10)3/cumm Normal 138-367 [facility] Comment on above: Performed By: #### C BCDIFF #### [facility] [address] [place] [address] 74581 Plt Morph Normal [facility] Comment on above: Performed By: #### C BCDIFF #### [facility] [address] [place] [address] 69401 RBC (Bld) [#/Vol] 5.37 X(10)6/cumm Normal 4.20-5.80 [facility] Comment on above: Performed By: #### C BCDIFF #### [facility] [address] [place] [address] 93256 RBC Morph cont Normal [facility] Comment on above: Performed By: #### C BCDIFF #### [facility] [address] [place], [place] [id number] RBC morphology finding Nom (Bld) Normal [facility] Comment on above: Performed By: #### C BCDIFF #### [facility] [address] [place], [place] [id number] WBC (Bld) [#/Vol] 3.8 x(10)3/cumm Normal 3.6-10.[address] [facility] Comment on above: Performed By: #### C BCDIFF #### [facility] [address] [place], [place] [phone] WBC Morph Normal [facility] Comment on above: Performed By: #### C BCDIFF #### [facility] [address] [place], [place] [id number] Comprehensive Metabolic Pane gabriel 11-14-2019 Albumin [Mass/Vol] 4.0 g/dL Normal 3.4-5.0 [facility] Comment on above: Order Comment: Hemol yzed specimen; Interpret with caution. Hemolysis may increase K, AST, CK, IRON, FOL, LD, LITH, MG, TIBC, VB12, Lact Ac Performed By: #### L IPID, CMP, TSH #### [facility] [address] [place], [place] [id number] ALP [Catalytic activity/Vol] 56 U/L Normal 45-117 [facility] Comment on above: Order Comment: Hemol yzed specimen; Interpret with caution. Hemolysis may increase K, AST, CK, IRON, FOL, LD, LITH, MG, TIBC, VB12, Lact Ac Performed By: #### L IPID, [facility], TSH #### [facility] [address] [place] [address] 56052 ALT [Catalytic activity/Vol] 37 U/L Normal 12-78 [facility] Comment on above: Order Comment: Hemol yzed specimen; Interpret with caution. Hemolysis may increase K, AST, CK, IRON, FOL, LD, LITH, MG, TIBC, VB12, Lact Ac Performed By: #### L IPID, CMP, TSH #### [facility] [address] [place], [place] [id number] Anion gap [Moles/Vol] 4 mmol/L Low 5-10 [facility] Comment on above: Order Comment: Hemol yzed specimen; Interpret with caution. Hemolysis may increase K, AST, CK, IRON, FOL, LD, LITH, MG, TIBC, VB12, Lact Ac Performed By: #### L IPID, [facility], TSH #### [facility] [address] [place], [place] [id number] AST [Catalytic activity/Vol] 25 U/L Normal 15-37 [facility] Comment on above: Order Comment: Hemol yzed specimen; Interpret with caution. Hemolysis may increase K, AST, CK, IRON, FOL, LD, LITH, MG, TIBC, VB12, Lact Ac Performed By: #### L IPID, [facility], TSH #### [facility] [address] [place] [address] 01567 Bili, Total 0.5 mg/dL Normal 0.2-1.0 [facility] Comment on above: Order Comment: Hemol yzed specimen; Interpret with caution. Hemolysis may increase K, AST, CK, IRON, FOL, LD, LITH, MG, TIBC, VB12, Lact Ac Performed By: #### L IPID, CMP, TSH #### [facility] [address] [place] [address] 65091 Calcium [Mass/Vol] 9.3 mg/dL Normal 8.5-10.1 [facility] Comment on above: Order Comment: Hemol yzed specimen; Interpret with caution. Hemolysis may increase K, AST, CK, IRON, FOL, LD, LITH, MG, TIBC, VB12, Lact Ac Performed By: #### L IPID [facility], TSH #### [facility] [address] [place] [address] 77212 Chloride [Moles/Vol] 108 mmol/L High 98-107 [facility] Comment on above: Order Comment: Hemol yzed specimen; Interpret with caution. Hemolysis may increase K, AST, CK, IRON, FOL, LD, LITH, MG, TIBC, VB12, Lact Ac Performed By: #### L IPEARNESTINE [facility], TSH #### [facility] [address] [place] [address] 11037 CO2 [Moles/Vol] 28 mmol/L Normal 21-32 [facility] Comment on above: Order Comment: Hemol yzed specimen; Interpret with caution. Hemolysis may increase K, AST, CK, IRON, FOL, LD, LITH, MG, TIBC, VB12, Lact Ac Performed By: #### L IPID, [facility], TSH #### [facility] [address] [place] [address] 93754 Creatinine [Mass/Vol] 1.24 mg/dL Normal 0.60-1.30 [facility] Comment on above: Order Comment: Hemol yzed specimen; Interpret with caution. Hemolysis may increase K, AST, CK, IRON, FOL, LD, LITH, MG, TIBC, VB12, Lact Ac Performed By: #### L IPID, [facility], TSH #### [facility] [address] [place] [address] 49694 eGFR -Amer >60 Normal >=60 [facility] Comment on above: Order Comment: Hemol yzed specimen; Interpret with caution. Hemolysis may increase K, AST, CK, IRON, FOL, LD, LITH, MG, TIBC, VB12, Lact Ac Performed By: #### L IPID, CMP, TSH #### [facility] [address] [place] [address] 24206 GFR/1.73 sq M predicted among non-blacks MDRD (S/P/Bld) [Vol rate/Area] mL/min/{1.73_m2} Normal >=60 [facility] Comment on above: Order Comment: Hemol yzed specimen; Interpret with caution. Hemolysis may increase K, AST, CK, IRON, FOL, LD, LITH, MG, TIBC, VB12, Lact Ac Performed By: #### L IPID, CMP, TSH #### [facility] [address] [place] [address] 95569 Glucose [Mass/Vol] 90 mg/dL Normal 74-106 [facility] Comment on above: Order Comment: Hemol yzed specimen; Interpret with caution. Hemolysis may increase K, AST, CK, IRON, FOL, LD, LITH, MG, TIBC, VB12, Lact Ac Performed By: #### L IPID, [facility], TSH #### [facility] [address] [place], [place] [id number] Potassium [Moles/Vol] 4.8 mmol/L Normal 3.5-5.1 [facility] Comment on above: Order Comment: Hemol yzed specimen; Interpret with caution. Hemolysis may increase K, AST, CK, IRON, FOL, LD, LITH, MG, TIBC, VB12, Lact Ac Performed By: #### L IPID, [facility], TSH #### [facility] [address] [place] [address] 65685 Prot Total 7.5 gm/dL Normal 6.4-8.2 [facility] Comment on above: Order Comment: Hemol yzed specimen; Interpret with caution. Hemolysis may increase K, AST, CK, IRON, FOL, LD, LITH, MG, TIBC, VB12, Lact Ac Performed By: #### L IPID, CMP, TSH #### [facility] [address] [place] [address] 76115 Sodium [Moles/Vol] 140 mmol/L Normal 136-145 [facility] Comment on above: Order Comment: Hemol yzed specimen; Interpret with caution. Hemolysis may increase K, AST, CK, IRON, FOL, LD, LITH, MG, TIBC, VB12, Lact Ac Performed By: #### L IPID, [facility], TSH #### [facility] [address] [place], [place] [id number] Urea nitrogen [Mass/Vol] 15 mg/dL Normal 7-18 [facility] Comment on above: Order Comment: Hemol yzed specimen; Interpret with caution. Hemolysis may increase K, AST, CK, IRON, FOL, LD, LITH, MG, TIBC, VB12, Lact Ac Performed By: #### L IPID, CMP, TSH #### [facility] [address] [place], [place] [id number] Lipid Profileon 11-14-2019 Cholesterol [Mass/Vol] 188 mg/dL Normal <=200 [facility] Comment on above: Order Comment: Hemol yzed specimen; Interpret with caution. Hemolysis may increase K, AST, CK, IRON, FOL, LD, LITH, MG, TIBC, VB12, Lact Ac Performed By: #### L IPID, CMP, TSH #### [facility] [address] [place], [place] [id number] Cholesterol in HDL [Mass/Vol] 42 mg/dL Normal 40-60 [facility] Comment on above: Order Comment: Hemol yzed specimen; Interpret with caution. Hemolysis may increase K, AST, CK, IRON, FOL, LD, LITH, MG, TIBC, VB12, Lact Ac Performed By: #### L IPID, CMP, TSH #### [facility] [address] [place], [place] [id number] Cholesterol in LDL [Mass/Vol] 128 mg/dL High <=99 [facility] Comment on above: Order Comment: Hemol yzed specimen; Interpret with caution. Hemolysis may increase K, AST, CK, IRON, FOL, LD, LITH, MG, TIBC, VB12, Lact Ac Performed By: #### L IPID, CMP, TSH #### [address] [address] Triglyceride [Mass/Vol] 91 mg/dL Normal <=150 [facility] Comment on above: Order Comment: Hemol yzed specimen; Interpret with caution. Hemolysis may increase K, AST, CK, IRON, FOL, LD, LITH, MG, TIBC, VB12, Lact Ac Performed By: #### L IPID, CMP, TSH #### [facility] [address] [place] [address] VLDL Calc 18 mg/dL Normal 14-48 [facility] Comment on above: Order Comment: Hemol yzed specimen; Interpret with caution. Hemolysis may increase K, AST, CK, IRON, FOL, LD, LITH, MG, TIBC, VB12, Lact Ac Performed By: #### L IPID, CMP, TSH #### [facility] [address] [place] [address] PSA Screeningon 11-14-2019 Comment Serum levels of PSA should not be interpreted as absolute evidence of disease. The PSA result should be used in conjunction with other clinical procedures. [facility] Comment on above: Order Comment: Hemol yzed specimen; Interpret with caution. Hemolysis may increase K, AST, CK, IRON, FOL, LD, LITH, MG, TIBC, VB12, Lact Ac Performed By: #### P SAS #### [place] [address] TSHon 11-14-2019 TSH Qn 2.460 uIU/mL Normal 0.358-3.[address] [facility] Comment on above: Order Comment: Hemol yzed specimen; Interpret with caution. Hemolysis may increase K, AST, CK, IRON, FOL, LD, LITH, MG, TIBC, VB12, Lact Ac Performed By: #### L IPID, CMP, TSH #### [place] [address] TSH Qn <0.001% of patients express a rare TSH variant which yields falsely low values in this assay. Interpret low TSH values along with T4 and T3 levels and the clinical history. [facility] Comment on above: Order Comment: Hemol yzed specimen; Interpret with caution. Hemolysis may increase K, AST, CK, IRON, FOL, LD, LITH, MG, TIBC, VB12, Lact Ac Performed By: #### L IPID, CMP, TSH #### [place] [id number] TSH Qn Concentrations of Biotin in excess of 100ng/ml in patient samples can potentially result in interference of TSH. [facility] Comment on above: Order Comment: Hemol yzed specimen; Interpret with caution. Hemolysis may increase K, AST, CK, IRON, FOL, LD, LITH, MG, TIBC, VB12, Lact Ac Performed By: #### L IPID, CMP, TSH #### [facility] [address] [place], [place] [id number] Vital Signs Date Time Vital Sign Value Performing Clinician Facility 03-04-2025 23:32-0400 Body height 180.[address] Gina Rivas MD Work Phone: 1(876)477-294483 [place] [address] 03-04-2025 23:32-0400 Body mass index (BMI) [Ratio] 28.4 kg/m2 Dr. Gina Rivas MD Work Phone: 9(700)245-181130 [place] [address] 03-04-2025 23:32-0400 Body temperature 98.2 [degF] Dr. Gina Rivas MD Work Phone: 6(021)100-875730 [place] [address] 03-04-2025 23:32-0400 Body weight 92.[address] Gina Rivas MD Work Phone: 7(657)936-511183 [place] [address] 03-04-2025 23:32-0400 Diastolic blood pressure 96 mm[Hg] Dr. Gina Rivas MD Work Phone: 7(056)866-267483 [place] [address] 03-04-2025 23:32-0400 Heart rate 59 /min Dr. Gina Rivas MD Work Phone: 6(392)003-411230 [place] [address] 03-04-2025 23:32-0400 Respiratory rate 18 /min Dr. Gina Rivas MD Work Phone: 1(243)716-291783 [place] [address] 03-04-2025 23:32-0400 SaO2% (BldA) [Mass fraction] 100 % Dr. Gina Rivas MD Work Phone: 6(580)390-101030 [place] [address] 03-04-2025 23:32-0400 Systolic blood pressure 150 mm[Hg] Dr. Gina Rivas MD Work Phone: 1(965)326-768683 [place] [address] 03-26-2023 11:07-0400 Diastolic blood pressure 66 mm[Hg] Out Town Doctor [facility] 03-26-2023 11:07-0400 Heart rate 51 /min Out [facility] 03-26-2023 11:07-0400 Respiratory rate 16 /min Out [facility] 03-26-2023 11:07-0400 SaO2% (BldA) [Mass fraction] 98 % Out [facility] 03-26-2023 11:07-0400 Systolic blood pressure 103 mm[Hg] Out [facility] 03-26-2023 10:54-0400 Body temperature 97.1 [degF] Out [facility] 03-26-2023 09:13-0400 Body height 180.34 cm Out [facility] 03-26-2023 09:13-0400 Body mass index (BMI) [Ratio] 26.5 kg/m2 Out [facility] 03-26-2023 09:13-0400 Body weight 86.36 kg Out [facility] 02-10-2023 08:26-0400 Body mass index (BMI) [Ratio] 26.5 kg/m2 Out [facility] 02-10-2023 08:26-0400 Body temperature 97.4 [degF] Out [facility] 02-10-2023 08:26-0400 Body weight 86.35 kg Out [facility] 02-10-2023 08:26-0400 Diastolic blood pressure 73 mm[Hg] Out [facility] 02-10-2023 08:26-0400 Heart rate 60 /min Out [facility] 02-10-2023 08:26-0400 Respiratory rate 18 /min Out [facility] 02-10-2023 08:26-0400 SaO2% (BldA) [Mass fraction] 98 % Out [facility] 02-10-2023 08:26-0400 Systolic blood pressure 115 mm[Hg] Out [facility] 12-14-2022 11:02-0400 Body mass index (BMI) [Ratio] 27 kg/m2 Out [facility] 12-14-2022 11:02-0400 Body weight 87.99 kg Out [facility] 12-14-2022 11:02-0400 Diastolic blood pressure 74 mm[Hg] Out [facility] 12-14-2022 11:02-0400 Heart rate 55 /min Out [facility] 12-14-2022 11:02-0400 Systolic blood pressure 112 mm[Hg] Out [facility] NEGATED: Highlighted [id number] 10:09-0500 Body height 177.8 cm Juanjo Will AT [facility] Work Phone: NEGATED: Highlighted [id number] 10:09-0500 Body height 178 cm Juanjo Will AT [facility] Work Phone: NEGATED: Highlighted [id number] 10:09-0500 Body mass index (BMI) [Ratio] 27.65 kg/m2 Juanjo Will AT [facility] Work Phone: NEGATED: Highlighted [id number] 10:09-0500 Body weight 87.09 kg Juanjo Will AT [facility] Work Phone: NEGATED: Highlighted [id number] 10:09-0500 Body weight 87 kg Juanjo Will AT [facility] Work Phone: Encounters Encounter Date Encounter Type Care Provider Facility Start: 03-04-2025 End: 03-05-2025 Emergency department patient visit Dr. Gina Rivas MD Work Phone: -Emergency Department Work Phone: Start: 08-11-2024 End: 08-11-2024 ambulatory Gina Rivas Facility:[facility] Start: 03-26-2023 Non-patient / Non-visit Out [facility] Start: 03-26-2023 End: 03-26-2023 Admission to same day surgery center Out [facility] Start: 03-26-2023 End: 03-26-2023 ambulatory Out of Town [facility] Work Phone: Start: 02-10-2023 End: 02-10-2023 Patient encounter procedure Out [place] [facility] Start: 12-14-2022 Patient encounter status Out [place] Do ctor [facility] Start: 12-14-2022 End: 12-14-2022 Encounter for general adult medical examination without abnormal findings Out [facility] Start: 12-14-2022 End: 12-14-2022 Patient encounter procedure Out [facility] [place] Start: 08-06-2020 End: 08-07-2020 Patient encounter procedure [facility] Start: 03-15-2020 End: 03-15-2020 Patient encounter procedure [facility] Start: 11-14-2019 End: 11-15-2019 Patient encounter procedure [facility] Procedures Date Procedure Procedure Detail Performing Clinician Start: 03-26-2023 Esophagogastroduodenoscopy Out [facility] Doctor Start: 11-24-2021 End: 11-24-2021 BP scrn no perf at interval Ritika Salazar neptali PA-C Work Phone: Start: 11-24-2021 End: 11-24-2021 Calc BMI abv up abdoul f/u Ritika Serrano Fito noe PA-C Work Phone: Start: 11-24-2021 End: 11-24-2021 CLASSIC WRIST BRACE 8 (BREG) Ritika Zach baeza PA-C Work Phone: Start: 11-24-2021 End: 11-24-2021 Current tobacco non-user cad cap copd pv dm Ritika Kirkpatrick PA-C Work Phone: Start: 11-24-2021 End: 11-24-2021 Docrev cur meds by kaylan aguirre Ritika Zach driscoll PA-C Work Phone: Start: 11-24-2021 End: 11-24-2021 Pain doc pos and plan Ritika Kirkpatrick PA-C Work Phone: Start: 11-24-2021 End: 11-24-2021 Patient encounter procedure Ritika Salazar son PA-C Work Phone: Start: 11-14-2019 [object Object] [facility] Comment on above: Order Comment: Hemol yzed specimen; Interpret with caution. Hemolysis may increase K, AST, CK, IRON, FOL, LD, LITH, MG, TIBC, VB12, Lact Ac Performed By: #### P SAS #### [place] [id number] [address] [place] [address] NEGATED: Highlighted rowStart: 11-24-2021 End: 11-24-2021 Documentation of current medications Juanjo Will AT Plan of Treatment Date Care Activity Detail Author Start: 03-05-2025 [facility] Start: 03-26-2023 Patient discharge [facility] Start: 12-14-2022 Patient referral [facility] Work Phone: Start: 11-24-2021 End: 11-24-2021 Patient encounter procedure Appointment [facility] Work Phone: Start: 11-24-2021 End: 11-24-2021 Radex hand minimum 3 views XR HAND 3+ VWS-LT [facility] Work Phone: CBC W Auto Different ial panel - Blood [facility] Lipid 1996 panel - S caroline or Plasma [facility] Patient Education ED Gout ED Gout Diet [facility] Work Phone: Patient referral [facility] Work Phone: Prostate specific antigen measurement [facility] Vitamin D, 25-hydrox y measurement [facility] Payers Date Payer Category Payer Self-pay 2024 Unknown [id number] 1970 Unknown [id number] 2.16.8 [id number] 1970 Unknown [id number] 2.16.8 [id number] 1970 Unknown [id number] 2.16.8 [id number] Unknown [id number] Unknown [facility] [id number] Unknown [facility] [id number] Unknown [id number] 2.16.8 [id number] Unknown [id number] 2.16.8 [id number] Social History Date Type Detail Facility Start: 11-24-2021 End: 11-24-2021 Assertion Unknown if ever smoked [facility] Work Phone: Start: 1970 Sex Assigned At Male W [facility] Start: 03-04-2025 Tobacco smoking status NHIS Ex-smoker (finding) [facility] NEGATED: Highlighted rowStart: 11-24-2021 End: 11-24-2021 Employment detail Employment detail [facility] Work Phone: Goals Date Patient Goal Desired Activity /State Mental Status Date Assessment Result Facility 03-26-2023 Cognitive function Level Of Cons ciousness Awake;Appropriate [facility] Work Phone: 03-26-2023 Cognitive function Voice/Name [facility] Work Phone: Procedure note 03-26-2023 Note Date & Type Note Facility 03-26-2023 Procedure note [facility] Procedure note 03-26-2023 Note Date & Type Note Facility 03-26-2023 Procedure note [facility] Instructions 11-24-2021 Note Date & Type Note Facility 11-24-2021 Instructions Patient advised to follow-up with Primary Care Physician for BMI management. [facility] Work Phone: Evaluation note Note Date & Type Note Facility Evaluation note There may be informa tion available, but it has not been provided by the sender. [facility] Work Phone: Evaluation note Note Date & Type Note Facility Evaluation note Diagnosis Onset Date Chronic reflux esophagitis a cute Encounter for wellness examination in adult acute Encounter to establish care noneactive Gastroesophageal reflux disease noneactive [facility] Work Phone: Evaluation note Note Date & Type Note Facility Evaluation note No assessment information availa ble [facility] Work Phone: History and physical note Note Date & Type Note Facility History and physical note Note Date/Time March 26, 2023 9:49am [facility] Medical Records Department [address] [place] [address] History & Physical Exam 03/26/23 0949 MR#: [id number] Acct: [id number] Name: GIULIANO RASHID Rep #:[id number] : 1970 52 From: Luis Wesley MD PCP: Dr. Ronda Paiz MD Status:[facility] Location: [place] [address] History and Physical Date of Admission: 03/26/23 Visit Reasons:?Gastroesophageal reflux disease (GERD) Chief Complaint: GERD Allergies No Known Allergies Allergy (Verified 12/14/22 11:05) PFSH Medical History? Cholecystectomy planned Surgical History? H/O colonoscopy Family History? Grandmother AsthmaMother Breast cancerFather DepressionGrandfather Parkinson disease Social History? Smoking Status:? Former smoker alcohol intake:? current details:? beer substance use type:? does not use what type of physical activity do you participate in:? yoga, weight training andother details: cardio frequency:? other details: 4-5 days a week HPI HPI HPI: 52-year-old gentleman is being referred by Dr. Ronda Paiz for surgical consultation regarding gastroesophageal reflux disease intermittent compromise surgical consult recommendations will return to him.? The patient's had a previous cholecystectomy in 2005.? I had a colonoscopy in 2019.? These were performed in [place].? The patient's current concern is long-term reflux symptoms.? This became worse subsequent to his cholecystectomy.? He is started using a probiotic.? He is not on any acid suppression medication Has had reflux symptoms for at least 5 years.? Heartburn symptoms.? Is not completely sure what triggers it but notices when he goes on vacation that they change in diet and perhaps increased use of alcohol can be a problem.? He is very physically fit.? He likes rowing.? He was a previous runner.? He also does weightlifting. He has no family history of esophagogastric or colonic disease ROS General General: No weight change, appetite, fatigue, colon cancer, breast cancer or weakness HEENT HEENT: No difficulty swallowing, eye injury, eye surgery, swollen glands or hoarseness Endo Endocrine: No thyroid disease, diabetes mellitus, thyroid cancer, Hair loss, heat intolerance or cold intolerance Skin Skin: No rash or changing moles Breast Breast: No left breast lump, right breast lump, nipple discharge, breast pain, abnormal mammogram, abnormal US or breast enlargement Musc Musculoskeletal: No back problems, arthritis, rheumatoid arthritis, gout or joint pain Cardio Cardiovascular: No murmur, pacemaker, heart disease, atrial fibrillation, high blood pressure, heart attack, heart stent, palpitations, shortness of breat withexertion or chest pain Psych Psychiatric: Yes anxiety; No depression or hearing voices Resp Respiratory: No shortness of breath, No sleep apnea, No cough, No COPD, No asthma, No emphysema and No wheezing Gastro Gastrointestinal: No abdominal pain, No nausea or vomiting, Yes diarrhea, No constipation, No blood in stool, Yes acid reflux, No hemorrhoids, No ulcers, No gallbladder problem and No black,tarry stools [place] Hematologic: No blood thinners, No blood disorders, No bleeding, No anemia and No blood clots Neuro Neurologic: No system reviewed and no additional complaints, except as documented, No as per HPI, No abnormal gait, No abnormal hearing, No abnormal movements, No abnormal speech, No behavioral changes, No burning sensations, No confusion, No convulsions, No disequilibrium, No dizziness, No localized weakness, No frequent falls, No headache(s), No lack of coordination, No loss ofvision, No memory loss, No numbness, No other visual disturbances, No radicular pain, No restless legs, No sensory deficit, No syncope, No tingling, No tremor(s), No weakness and No other Exam Const General: cooperative, healthy appearing, comfortable and no acute distress [facility] Head: normal to inspection Eyes General: appearance normal, both eyes and all related structures Neck Neck: normal visual inspection Chest Chest palpation & inspection: normal inspection of the chest Resp Effort & Inspection: normal respiratory effort Auscultation: clear to auscultation bilaterally Cardio Rate: regular rate Rhythm: regular rhythm GI Inspection: normal to inspection Palpation: soft and no hepatosplenomegaly Musc Cervical Spine: normal cervical lordosis Skin General: no rashes or lesions noted Neuro General: patient alert, patient awake and patient oriented x3 Extrem General: normal to inspection and no calf tenderness Psych Appearance: grossly normal Assessment and Plan Assessment and Plan (1) Gastroesophageal reflux disease: ?Plan: I recommended the patient a esophagogastroduodenoscopy with possible biopsy or polypectomy as indicated.? He is aware of technique, benefit, risk and alternatives.? He said an opportunity to ask and have questions answered.? Very careful inspection for any type of reflux changes will be noted.? I appreciate the opportunity of assisting with the surgical care. Copy: Dr. Ronda Wesley M.D., F.A.C.S. I have examined the patient and the H&P has been reviewed. There are no clinicalchanges since date of exam. Luis Wesley M.D., F.A.C.S. 03/26/23 [id number] <Electronically signed by Luis Wesley MD> Cosigner Signature (if applicable): CC: Dr. Ronda Paiz MD; Dr. Luis Wesley MD~ Signed [facility] Work Phone: Hospital Discharge instructions Note Date & Type Note Facility Hospital Discharge instructions Additional Instructions Your symptoms are consistent with gout. Please take the prescribed medication as directed to help resolve the inflammation. If you develop a fever of 100.4 or the redness continues to track up your arm or you have any further concerns please return to the ER for repeat evaluation [facility] Work Phone: Reason for referral (narrative) Note Date & Type Note Facility Reason for referral (narrative) No reason for referral information available [facility] Work Phone: Summary Purpose Family History No Family History Records Found Relationship Condition Age at Onset Recorded Date/T silvia grandmother Asthma Unknown mother Malignant neoplasm of breast Unknown father Depression Unknown grandfather Parkinson's disease Unknown Advance Directives No Advanced Directives Records Found Advance Directive Response Recorded Date/ Time Living Will No March 23, 2023 1:41pm Power of Senior Controls Engineer No March 23 1:41pm Advance Directive Response Recorded Date/ Time Do you have a Healthcare Power of Senior Controls Engineer? No March 04, 2025 11:34pm Chief Complaint Chief Complaint Description Start Date left wrist pain Preliminary chief co mplaint data, not yet signed by the author as of Chief Complaint and Reason for Visit Chief Complaint Establish Care Gastroesophageal reflux disease (GERD) Reason for Visit Chronic reflux esoph agitis Encounter for wellness examination in adult Encounter to establish care Gastroesophageal reflux disease Chief Complaint Admit Date L wrist injury March 04, 2025 11:30 pm Additional Source Comments (unrecognized sect ion and content) No Status Records FoundNo Status Records FoundNo Status Records Found INFORMATION SOURCE (unrecogn ized section and content) DATE CREATED AUTHOR 03/18/2020 [facility] DATE CREATED AUTHOR AUTHOR'S ORGANIZ ATION 08/08/2020 [facility] DATE CREATED AUTHOR AUTHOR'S ORGANIZ ATION 03/11/2025 [facility] Reason for Visit (unrecogniz ed section and content) Reason For Visit Description New - 1st visit with practice Preliminary reason f or visit data, not yet signed by the author as of left wrist pain Care Teams (unrecognized sec tion and content) Team Status: Active Member Role Status Dates Out of [facility] Doctor Family Provider Active Dr. Ronda Paiz MD Primary Care Provider Active Team Status: Inactive Member Role Status Dates Out [facility] Doctor Primary Care Provider Active Dr. Ronda Paiz MD Attending Provider Active Team Status: Inactive Member Role Status Dates Dr. Ronda Paiz MD Primary Care Provider, [facility] Provider Active Dr. Luis Wesley MD Attending Provider Active Team Status: Active Member Role Status Dates Dr. Ronda Paiz MD Primary Care Provider, Referri Provider Active Dr. Luis Wesley MD Attending Provider, Other Prov ider Active Team Status: Active Member Role Status Dates Dr. Gina Rivas MD Primary Care Provider Active Team Status: Inactive Member Role Status Dates Dr. Gina Rivas MD Primary Care Provider Active Start: March 04, 2025 End: March 05, 2025 Dr. Joselito Saucedo , Emergency Provider Active Start: March 04, 2025 End: March 05, 2025 Goals (unrecognized section and content) Goals may be documented in a n alternate section FOR RECORDS PERTAINING TO PATIENTS WHO ARE OR HAVE BEEN ENROLLED IN A CHEMICAL DEPENDENCY/SUBSTANCEABUSE PROGRAM, SOME INFORMATION MAY BE OMITTED. This clinical summary was aggregated from multiple sources. Caution should be exercised in using it in the provision of clinical care. This summary normalizes information from multiple sources, and as a consequence, information in this document may materially change the coding, format and clinical context of patient data. In addition, data may be omitted in some cases. CLINICAL DECISIONS SHOULD BE BASED ON THE PRIMARY CLINICAL RECORDS. [employer] provides no warranty or guarantee of the accuracy or completeness of information in this document.
[2025-03-22 12:31] LABS: Absolute Neutrophil Count 3.1 X10^3/uL (2.0-7.7); Basophil# 0.04 X10^3/uL; Basophil% 0.8 % (0-1); Eosinophil# 0.14 X10^3/uL; Eosinophils% 2.8 % (0-5); Hematocrit 41.4 % (40-54); Hemoglobin 14.7 g/dL (13.0-16.5); Lymphocyte % 27.6 % (19-41); Mean Corp Hgb Conc 35.5 g/dL (32-36); Mean Corpuscular Hgb 29.2 pg (27.0-32.0); Mean Corpuscular Volume 82.1 fL (80-94); Mean Platelet Vol. 9.8 fl (6.2-12.0); Monocyte# 0.41 X10^3/uL; Monocyte% 8.1 % (0-10); NRBC Flagged by Analyzer 0 % (0-5); Neutrophil # 3.08 X10^3/uL (2.7-7.7); Neutrophil % 60.5 % (47-70); Platelet Count 300 K/mm3 (150-450); RBC Distribution Width CV 12.5 % (11.6-14.6); RBC Distribution Width SD 37.1 fl (35.1-43.9); Red Blood Count 5.04 M/mm3 (4.6-6.2); White Blood Count 5.1 K/mm3 (4.4-11.0)
[2025-03-22 13:12] LABS: ALB/GLOB Ratio 1.4 RATIO (0.9-2.4); AST(SGOT) 22 U/L (<=37); Alanine Aminotransfer ALT/SGPT 18 U/L (<=46); Albumin, Serum 4.1 g/dL (3.5-5.0); Alkaline Phosphatase 62 U/L (40-129); Anion Gap 11 (5-15); BUN 13 mg/dL (4-19); BUN/Creat Ratio 11.3 RATIO (10-20); Calcium,Total 9.2 mg/dL (7.6-11.0); Chloride 103 mmol/L (98-108); Creatinine, Serum 1.14 mg/dL (0.70-1.20); EST Glomerular Filtration Rate 77 (>60); Globulin 2.9 g/dL (2.2-4.2); Glucose 90 mg/dL (70-99); Potassium 4.4 mmol/L (3.3-5.1); Sodium Level 138 mmol/L (133-145); Total Bilirubin 0.64 mg/dL (0.00-1.30); Uric Acid 8.1 mg/dL (3.5-7.2)
== END | disposition home or self-care (01) ==
LOC: MFPLAB 10:14
PROVIDERS: PCP Family Medicine
DX: M10.9 Gout, unspecified (principal)
CPT/HCPCS: 36415; 80053; 84550; 85025

== ENCOUNTER → 2025-05-04 | Outpatient (CLI) | payer OTHER, SELFPAY ==
--- OUTSIDE RECORDS SUMMARY | 2025-05-04 07:20 | XMS RPT_ITS | CCD ---
Author Organization [facility] Care Team Providers Care [employer] Sales Representative Name Role Phone LUIS OLSON Admitting Unavailable LUIS OLSON Primary Care Unavailable LUIS OLSON Attending Unavailable GINA COREY Attending Unavailable RONY GAFFNEY UnavailLUIS Whitlock Primary Care Unavailable GINA COREY Admitting Unavailable LUIS OLSON Admitting Unavailable LUIS OLSON Primary Care Unavailable LUIS OLSON Attending Unavailable Casimiro MIMS, Ritika Serrano Unavailable [facility] Doctor, Out of Primary Care Provider ChiarandDr. Ronda Lancaster Attending Provider Dr. Ronda Paiz Primary Care Provider Dr. Ronda Paiz Referring Provider Dr. Luis Wesley Attending Provider CeDr. Luis hogan Other Provider Dr. Gina Rivas MD Primary Care Provider Dr. Joselito Saucedo DO Emergency Provider [phone] Joselito Saucedo DO Attending Provider [phone] Carolina SHEARERCConnie Attending Provider Gina Rivas Attending Unavailable Gina Rivas Primary Care Unavailable Connie Figueroa Attending Unavailable Gina Rivas Primary Care Unavailable Joselito Saucedo Attending Unavailable Gina Rivas Primary Care Unavailable Medications Current Medications Medication Drug Class(es) Dates Sig (Normalized) Sig (Original) acetaminophen 325 mg / oxyCODONE hydrochloride 5 mg oral tablet (2 sources) Opioid Agonist Start: 5 take 1 tablet by mouth every six hours as needed for pain Oxycodone-Acetaminophe n (Percocet) 5-325 mg tablet Active 1 {tbl} PO EVERY 6 HOURS as needed for pain 12 3 March 05, 2025 methylPREDNISolone 4 mg oral tablet (1 source) Corticosteroid Start: 2 End: 2 MEDROL 4 MG TABS Take 1 tablet by mouth as directed Take 6 tablets by mouth the first day, 5 tablets the following day... down to 1 tablet per day methylprednisolone [id number] Ritika Kirkpatrick PA-C predniSONE 10 mg oral tablet (2 sources) Start: 5 Prednisone 10 mg tablet Active 10 mg [...] (Original) bismuth subsalicylate 525 mg oral tablet (2 sources) Bismuth Start: 03-30-2023 End: 03-04-2025 take 8 tablets by mouth every twenty-four hours Bismuth Subsalicylate 525 mg tablet Discontinued 525 mg PO .QID 56 March 30, 2023 12:00am March 04, 2025 11:31pm do not exceed 8 doses in a 24 hour period lactobacillus acidophilus [id number] unt oral capsule (3 sources) Start: 03-23-2023 End: 03-04-2025 take 10 capsules by mouth once daily Lactobacillus Acidophilus (Probiotic) 10 billion cell Capsule Discontinued 98667 NMA PO DAILY March 23, 2023 12:00am March 04, 2025 11:31pm metroNIDAZOLE 250 mg oral tablet (2 sources) Nitroimidazole Antimicrobial Start: 03-30-2023 End: 03-04-2025 take 1 tablet by mouth four times daily Metronidazole 250 mg tablet Discontinued 250 mg PO .qid 56 March 30, 2023 12:00am March 04, 2025 11:31pm omeprazole 40 mg delayed release oral capsule (2 sources) Proton Pump Inhibitor Start: 03-30-2023 End: 03-04-2025 take 1 capsule by mouth twice daily Omeprazole 40 mg capsule,delayed release(DR/EC) Discontinued 40 mg PO TWICE A DAY 14 March 30, 2023 12:00am March 04, 2025 11:31pm tetracycline hydrochloride 500 mg oral capsule (2 sources) Tetracycline-class Antimicrobial Start: 03-30-2023 End: 03-04-2025 take [...] Translations: [PALPITATIONS] Onset: 08-08-2020 Episodic Esophageal disorders (5 sources) Gastro-esophageal reflux disease with esophagitis; Translations: [Chronic reflux esophagitis] 12-14-2022 Chronic Gout and other crystal arthropathies (3 sources) 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; Translations: [Gout, unspecified] Onset: 03-27-2025 03-05-2025 Chronic Other congenital anomalies (1 source) [...] Test Name Value Interpretation Reference Range Facility Absolute lymphocyte countOrd ered By: Connie Figueroa on 03-22-2025 Lymphocytes Auto (Unsp spec) [#/Vol] 1.40 10*3/uL 0.83-4.51 [facility] Absolute neutrophil countOrd ered By: Connie Figueroa on 03-22-2025 Neutrophils (Bld) [#/Vol] 3.1 10*3/uL 2.0-7.7 [facility] Anion gap in Serum or Plasma Ordered By: Connie Figueroa on 03-22-2025 Anion gap [Moles/Vol] 11 mmol/L 5-15 [facility] Automated lymphocyte count a s percentage of total leukocytesOrdered By: Connie Figueroa on 03-22-2025 Lymphocytes/100 WBC Auto (Unsp spec) 27.6 % 19-41 [facility] BUN/creatinine ratioOrdered By: Connie Figueroa on 03-22-2025 Urea nitrogen/Creatinine [Mass ratio] 11.3 mg/mg 10-20 [facility] Basophil percentageOrdered B y: Connie Figueroa on 03-22-2025 Basophils/100 WBC (Bld) 0.8 % 0-1 [facility] Bilirubin, totalOrdered By: Connie Figueroa on 03-22-2025 Bilirubin [Mass/Vol] 0.64 mg/dL 0.00-1.30 [facility] CBC W/Diff, Automatedon 03-04 Absolute Lymph 1.40 X10 3/uL Normal 0.83-4.51 [facility] Comment on above: Performed By: #### L 100.0100, L501.1400, L500.4050 #### [facility] [address] [place], [address] Absolute Neut 3.1 X10 3/uL Normal 2.0-7.7 [facility] Comment on above: Performed By: #### L 100.0100, L501.1400, L500.4050 #### [facility] [address] [place], [address] Basophils/100 WBC (Bld) 0.8 % Normal 0-1 [facility] Comment on above: Performed By: #### L 100.0100, L501.1400, L500.4050 #### [facility] [address] [place], [address] Eosinophils/100 WBC (Bld) 2.8 % Normal 0-5 [facility] Comment on above: Performed By: #### L 100.0100, L501.1400, L500.4050 #### [facility] [address] [place], [address] Erythrocyte distribution width (RBC) [Ratio] 12.5 % Normal 11.6-14.6 [facility] Comment on above: Performed By: #### L 100.0100, L501.1400, L500.4050 #### [facility] [address] [place], [address] Hematocrit (Bld) [Volume fraction] 41.4 % Normal 40-54 [facility] Comment on above: Performed By: #### L 100.0100, L501.1400, L500.4050 #### [facility] [address] [place], [address] Hemoglobin (Bld) [Mass/Vol] 14.7 g/dL Normal 13.0-16.5 [facility] Comment on above: Performed By: #### L 100.0100, L501.1400, L500.4050 #### [facility] [address] [place], [address] IG% 0.200 Normal 0.0-0.9 [facility] Comment on above: Result Comment: IG% - Immature Granulocytes (promyelocytes, myelocytes and metamyelocytes) > 1% indicates that a LEFT SHIFT is Present. Performed By: #### L 100.0100, L501.1400, L500.4050 #### [facility] [address] [place], [address] Lymphocytes/100 WBC (Bld) 27.6 % Normal 19-41 [facility] Comment on above: Performed By: #### L 100.0100, L501.1400, L500.4050 #### [facility] [address] [place], [address] MCH (RBC) [Entitic mass] 29.2 pg Normal 27.0-32.0 [facility] Comment on above: Performed By: #### L 100.0100, L501.1400, L500.4050 #### [facility] [address] [place], [address] MCHC (RBC) [Mass/Vol] 35.5 g/dL Normal 32-36 [facility] Comment on above: Performed By: #### L 100.0100, L501.1400, L500.4050 #### [facility] [address] [place], [address] MCV (RBC) [Entitic vol] 82.1 fL Normal 80-94 [facility] Comment on above: Performed By: #### L 100.0100, L501.1400, L500.4050 #### [facility] [address] [place], [address] Monocytes/100 WBC (Bld) 8.1 % Normal 0-10 [facility] Comment on above: Performed By: #### L 100.0100, L501.1400, L500.4050 #### [facility] [address] [place], [address] Neutrophils/100 WBC (Bld) 60.5 % Normal 47-70 [facility] Comment on above: Performed By: #### L 100.0100, L501.1400, L500.4050 #### [facility] [address] [place], [address] Nucleated RBC (Bld) [#/Vol] 0 10*3/uL Normal 0-5 [facility] Comment on above: Performed By: #### L 100.0100, L501.1400, L500.4050 #### [facility] [address] [place], [address] Platelet mean volume (Bld) [Entitic vol] 9.8 fL Normal 6.2-12.0 [facility] Comment on above: Performed By: #### L 100.0100, L501.1400, L500.4050 #### [facility] [address] [place], [address] Platelets (Bld) [#/Vol] 300 10*3/uL Normal 150-450 [facility] Comment on above: Performed By: #### L 100.0100, L501.1400, L500.4050 #### [facility] [address] [place], [address] RBC (Bld) [#/Vol] 5.04 10*6/uL Normal 4.6-6.2 [facility] Comment on above: Performed By: #### L 100.0100, L501.1400, L500.4050 #### [facility] [address] [place], [address] RDW SD 37.1 fl Normal 35.1-43.9 [facility] Comment on above: Performed By: #### L 100.0100, L501.1400, L500.4050 #### [facility] [address], [address] WBC (Bld) [#/Vol] 5.1 10*3/uL Normal 4.4-11.0 [facility] Comment on above: Performed By: #### L 100.0100, L501.1400, L500.4050 #### [facility] [address] [place], [address] Carbon dioxide, total [Moles /volume] in Central venous bloodOrdered By: Connie Figueroa on 03-22-2025 CO2 [Moles/Vol] 24.0 mmol/L 21.0-32.0 [facility] Chloride assayOrdered By: Enrique Figueroa on 03-22-2025 Chloride [Moles/Vol] 103 mmol/L 98-108 [facility] Comprehensive Metabolic Prof ilon 03-22-2025 Albumin [Mass/Vol] 4.1 g/dL Normal 3.5-5.0 [facility] Comment on above: Performed By: #### L 100.0100, L501.1400, L500.4050 #### [facility] [address], [address] Albumin/Globulin [Mass ratio] 1.4 {ratio} Normal 0.9-2.4 [facility] Comment on above: Performed By: #### L 100.0100, L501.1400, L500.4050 #### [facility] [address] [place], [address] ALK PHOS 62 U/L Normal 40-129 [facility] Comment on above: Performed By: #### L 100.0100, L501.1400, L500.4050 #### [facility] [address] [place], [address] ALT [Catalytic activity/Vol] 18 U/L Normal <=46 [facility] Comment on above: Performed By: #### L 100.0100, L501.1400, L500.4050 #### [facility] [address] [place], [address] AST [Catalytic activity/Vol] 22 U/L Normal <=37 [facility] Comment on above: Performed By: #### L 100.0100, L501.1400, L500.4050 #### [facility] [address] [place], [address] Bilirubin [Mass/Vol] 0.64 mg/dL Normal 0.00-1.30 [facility] Comment on above: Performed By: #### L 100.0100, L501.1400, L500.4050 #### [facility] [address] [place], [address] BUN/CRE 11.3 RATIO Normal 10-20 [facility] Comment on above: Performed By: #### L 100.0100, L501.1400, L500.4050 #### [facility] [address] [place], [address] Calcium [Mass/Vol] 9.2 mg/dL Normal 7.6-11.0 [facility] Comment on above: Performed By: #### L 100.0100, L501.1400, L500.4050 #### [facility] [address] [place], [address] Chloride [Moles/Vol] 103 mmol/L Normal 98-108 [facility] Comment on above: Performed By: #### L 100.0100, L501.1400, L500.4050 #### [facility] [address] [place], [address] CO2 [Moles/Vol] 24.0 mmol/L Normal 21.0-32.0 [facility] Comment on above: Performed By: #### L 100.0100, L501.1400, L500.4050 #### [facility] [address] [place], [address] Creatinine [Mass/Vol] 1.14 mg/dL Normal 0.70-1.20 [facility] Comment on above: Performed By: #### L 100.0100, L501.1400, L500.4050 #### [facility] [address] [place], [address] GAP 11 Normal 5-15 [facility] Comment on above: Performed By: #### L 100.0100, L501.1400, L500.4050 #### [facility] [address] [place], [address] GFR/1.73 sq M.predicted among non-blacks MDRD (S/P/Bld) [Vol rate/Area] 77 mL/min/{1.73_m2} Normal >60 [facility] Comment on above: Result Comment: mL/m in/1.73m2 CKD-EPI Creatinine Equation (2020) Performed By: #### L 100.0100, L501.1400, L500.4050 #### [facility] [address] [place], [address] Globulin (S) [Mass/Vol] 2.9 g/dL Normal 2.2-4.2 [facility] Comment on above: Performed By: #### L 100.0100, L501.1400, L500.4050 #### [facility] [address] [place], [address] Glucose [Mass/Vol] 90 mg/dL Normal 70-99 [facility] Comment on above: Performed By: #### L 100.0100, L501.1400, L500.4050 #### [facility] [address] [place], [address] Potassium [Moles/Vol] 4.4 mmol/L Normal 3.3-5.1 [facility] Comment on above: Performed By: #### L 100.0100, L501.1400, L500.4050 #### [facility] [address] [place], [address] Sodium [Moles/Vol] 138 mmol/L Normal 133-145 [facility] Comment on above: Performed By: #### L 100.0100, L501.1400, L500.4050 #### [facility] [address] [place], [address] T PROT 7.0 g/dL Normal 5.9-8.4 [facility] Comment on above: Performed By: #### L 100.0100, L501.1400, L500.4050 #### [facility] [address] [place], [address] Urea nitrogen [Mass/Vol] 13 mg/dL Normal 4-19 [facility] Comment on above: Performed By: #### L 100.0100, L501.1400, L500.4050 #### [facility] [address] [place], [address] Eosinophil percentageOrdered By: Connie Figueroa on 03-22-2025 Eosinophils/100 WBC (Bld) 2.8 % 0-5 [facility] Erythrocyte distribution wid th ratioOrdered By: Connie Figueroa on 03-22-2025 Erythrocyte distribution width (RBC) [Ratio] 12.5 % 11.6-14.6 [facility] Erythrocyte distribution wid th standard deviationOrdered By: Connie Figueroa on 03-22-2025 Erythrocyte distribution width (RBC) [Ratio] 37.1 fl 35.1-43.9 [facility] Glomerular filtration rate ( GFR) estimation/1.73 sq m using serum, plasma, or whole bOrdered By: Connie Figueroa on 03-22-2025 GFR/1.73 sq M.predicted among non-blacks MDRD (S/P/Bld) [Vol rate/Area] 77 mL/min/{1.73_m2} >60 [facility] Comment on above: mL/min/1.73m2 CKD-EP I Creatinine Equation (2020) Hematocrit Auto (Bld) [Volum e fraction]Ordered By: Connie Figueroa on 03-22-2025 Hematocrit (Bld) [Volume fraction] 41.4 % 40-54 [facility] Hemoglobin measurementOrdere d By: Connie Figueroa on 03-22-2025 Hemoglobin (Bld) [Mass/Vol] 14.7 g/dL 13.0-16.5 [facility] Immature granulocytes/100 WB C Auto (Bld)Ordered By: Connie Figueroa on 03-22-2025 Immature granulocytes/100 WBC (Bld) 0.200 % 0.0-0.9 [facility] Comment on above: IG% - Immature Granu locytes (promyelocytes, myelocytes and metamyelocytes) > 1% indicates that a LEFT SHIFT is Present. Laboratory - Chemistry and C hemistry - challengeOrdered By: Connie Figueroa on 03-22-2025 AST [Catalytic activity/Vol] 22 U/L <38 [facility] MCV (mean corpuscular volume ) determinationOrdered By: Connie Figueroa on 03-22-2025 MCV (RBC) [Entitic vol] 82.1 fL 80-94 [facility] Mean corpuscular hemoglobin (MCH) determinationOrdered By: Connie Figueroa on 03-22-2025 MCH (RBC) [Entitic mass] 29.2 pg 27.0-32.0 [facility] Mean corpuscular hemoglobin concentration (MCHC) determinationOrdered By: Connie Figueroa on 03-22-2025 MCHC (RBC) [Mass/Vol] 35.5 g/dL 32-36 [facility] Mean platelet volume determi nationOrdered By: Connie Figueroa on 03-22-2025 Platelet mean volume (Bld) [Entitic vol] 9.8 fL 6.2-12.0 [facility] Monocyte percentageOrdered B y: Connie Figueroa on 03-22-2025 Monocytes/100 WBC (Bld) 8.1 % 0-10 [facility] Neutrophil percentageOrdered By: Connie Figueroa on 03-22-2025 Neutrophils/100 WBC (Bld) 60.5 % 47-70 [facility] Nucleated red blood cell per centageOrdered By: Connie Figueroa on 03-22-2025 Nucleated RBC/100 WBC (Bld) [Ratio] 0 % 0-5 [facility] Platelet countOrdered By: Enrique Figueroa on 03-22-2025 Platelets (Bld) [#/Vol] 300 10*3/uL 150-450 [facility] Potassium measurement (mass/ volume)Ordered By: Connie Figueroa on 03-22-2025 Potassium (Unsp spec) [Mass/Vol] 4.4 mmol/L 3.3-5.1 [facility] RBC Auto (Bld) [#/Vol]Ordere d By: Connie Figueroa on 03-22-2025 RBC (Bld) [#/Vol] 5.04 10*6/uL 4.6-6.2 [facility] Serum creatinine measurement (mass/volume)Ordered By: Connie Figueroa on 03-22-2025 Creatinine [Mass/Vol] 1.14 mg/dL 0.70-1.20 [facility] Serum globulin measurementOr dered By: Connie Figueroa on 03-22-2025 Globulin (S) [Mass/Vol] 2.9 g/dL 2.2-4.2 [facility] Serum glucose measurement (m ass/volume)Ordered By: Connie Figueroa on 03-22-2025 Glucose [Mass/Vol] 90 mg/dL 70-99 [facility] Serum or plasma alanine underwood otransferase (ALT) measurementOrdered By: Connie Figueroa on 03-22-2025 ALT [Catalytic activity/Vol] 18 U/L <47 [facility] Serum or plasma albumin susan urement (mass/volume)Ordered By: Connie Figueroa on 03-22-2025 Albumin [Mass/Vol] 4.1 g/dL 3.5-5.0 [facility] Serum or plasma albumin/glob ulin mass ratioOrdered By: Connie Figueroa on 03-22-2025 Albumin/Globulin [Mass ratio] 1.4 {ratio} 0.9-2.4 [facility] Serum or plasma alkaline jayjay sphatase measurementOrdered By: Connie Figueroa on 03-22-2025 ALP [Catalytic activity/Vol] 62 U/L 40-129 [facility] Serum or plasma calcium susan urement (mass/volume)Ordered By: Connie Figueroa on 03-22-2025 Calcium [Mass/Vol] 9.2 mg/dL 7.6-11.0 [facility] Serum or plasma urea nitroge n measurement (mass/volume)Ordered By: Connie Figueroa on 03-22-2025 Urea nitrogen [Mass/Vol] 13 mg/dL 4-19 [facility] Serum or plasma uric acid me asurement (mass/volume)Ordered By: Connie Figueroa on 03-22-2025 Urate [Mass/Vol] 8.1 mg/dL High 3.5-7.2 [facility] Comment on above: The drugs N-Acetylcy steine and Metamizole may falsely depress this assay. Sodium levelOrdered By: Racquel Figueroa on 03-22-2025 Sodium [Moles/Vol] 138 mmol/L 133-145 [facility] Total proteinOrdered By: Leoncio Figueroa on 03-22-2025 Protein [Mass/Vol] 7.0 g/dL 5.9-8.4 [facility] Uric Acidon 03-22-2025 URIC 8.1 mg/dL High 3.5-7.2 [facility] Comment on above: Result Comment: The drugs N-Acetylcysteine and Metamizole may falsely depress this assay. Performed By: #### L 100.0100, L501.1400, L500.4050 #### [facility] [address] [place], [address] White blood cell (WBC) count Ordered By: Connie Figueroa on 03-22-2025 WBC (Bld) [#/Vol] 5.1 10*3/uL 4.4-11.0 [facility] Emergency Department Summary on 03-05-2025 Emergency Department Summary [facility] Medical Records Department [address] [place] [address] Emergency Department Summary 03/05/25 MR#: [id number] Acct: [id number] Name: GAY,GIULIANO JUANJO Rep #: [id number] : 1970 54 From: Joselito Saucedo DO [...] and swelling he presents for evaluation [facility] Medical History (Updated 03/05/25 @ 00:[address] Joselito Saucedo DO) Anxiety Alcohol use Gastric reflux Former smoker History of echocardiogram Home Medications ???Medication ???Instructions ???Recorded ???Last Taken ???Type oxycodone-acetaminop hen 5 mg-325 1 tab PO Q6H PRN pain 3 days #12 0 03/05/25 Unknown Rx mg tablet (Percocet) tabs prednisone [...] wrist Neurologic Neurologic: Denies headache(s) or paresthesias Hematologic/Lymphati c Hematologic/Lymphati c: Denies easy bleeding or easy bruising EXAM [...] low concer (more content not included)... Normal [facility] CBC W/Diff, Automatedon 11-0 Absolute Lymph 1.46 X10 3/uL Normal 0.83-4.51 [facility] Comment on above: Performed By: #### L 100.0100, L500.4050, L501.1400, L501.9910 #### [facility] [address] [place], [address] Absolute Neut 3.0 X10 3/uL Normal 2.0-7.7 [facility] Comment on above: Performed By: #### L 100.0100, L500.4050, L501.1400, L501.9910 #### [facility] [address] [place], [address] Basophils/100 WBC (Bld) 1.2 % High 0-1 [facility] Comment on above: Performed By: #### L 100.0100, L500.4050, L501.1400, L501.9910 #### [facility] [address] [place], [address] Eosinophils/100 WBC (Bld) 1.8 % Normal 0-5 [facility] Comment on above: Performed By: #### L 100.0100, L500.4050, L501.1400, L501.9910 #### [facility] [address] [place], [address] Erythrocyte distribution width (RBC) [Ratio] 12.6 % Normal 11.6-14.6 [facility] Comment on above: Performed By: #### L 100.0100, L500.4050, L501.1400, L501.9910 #### [facility] [address] [place], [address] Hematocrit (Bld) [Volume fraction] 45.0 % Normal 40-54 [facility] Comment on above: Performed By: #### L 100.0100, L500.4050, L501.1400, L501.9910 #### [facility] [address] [place], [address] Hemoglobin (Bld) [Mass/Vol] 15.0 g/dL Normal 13.0-16.5 [facility] Comment on above: Performed By: #### L 100.0100, L500.4050, L501.1400, L501.9910 #### [facility] [address] [place], [address] IG% 0.000 Normal 0.0-0.9 [facility] Comment on above: Result Comment: IG% - Immature Granulocytes (promyelocytes, myelocytes and metamyelocytes) > 1% indicates that a LEFT SHIFT is Present. Performed By: #### L 100.0100, L500.4050, L501.1400, L501.9910 #### [facility] [address] [place], [address] Lymphocytes/100 WBC (Bld) 29.8 % Normal 19-41 [facility] Comment on above: Performed By: #### L 100.0100, L500.4050, L501.1400, L501.9910 #### [facility] [address] [place], [address] MCH (RBC) [Entitic mass] 28.6 pg Normal 27.0-32.0 [facility] Comment on above: Performed By: #### L 100.0100, L500.4050, L501.1400, L501.9910 #### [facility] [address] [place], [address] MCHC (RBC) [Mass/Vol] 33.3 g/dL Normal 32-36 [facility] Comment on above: Performed By: #### L 100.0100, L500.4050, L501.1400, L501.9910 #### [facility] [address] [place], [address] MCV (RBC) [Entitic vol] 85.7 fL Normal 80-94 [facility] Comment on above: Performed By: #### L 100.0100, L500.4050, L501.1400, L501.9910 #### [facility] [address] [place], [address] Monocytes/100 WBC (Bld) 6.9 % Normal 0-10 [facility] Comment on above: Performed By: #### L 100.0100, L500.4050, L501.1400, L501.9910 #### [facility] [address] [place], [address] Neutrophils/100 WBC (Bld) 60.3 % Normal 47-70 [facility] Comment on above: Performed By: #### L 100.0100, L500.4050, L501.1400, L501.9910 #### [facility] [address] [place], [address] Nucleated RBC (Bld) [#/Vol] 0 10*3/uL Normal 0-5 [facility] Comment on above: Performed By: #### L 100.0100, L500.4050, L501.1400, L501.9910 #### [facility] [address] [place], [address] Platelet mean volume (Bld) [Entitic vol] 9.5 fL Normal 6.2-12.0 [facility] Comment on above: Performed By: #### L 100.0100, L500.4050, L501.1400, L501.9910 #### [facility] [address] [place], [address] Platelets (Bld) [#/Vol] 352 10*3/uL Normal 150-450 [facility] Comment on above: Performed By: #### L 100.0100, L500.4050, L501.1400, L501.9910 #### [facility] [address] [place], [address] RBC (Bld) [#/Vol] 5.25 10*6/uL Normal 4.6-6.2 [facility] Comment on above: Performed By: #### L 100.0100, L500.4050, L501.1400, L501.9910 #### [facility] [address] [place], [address] RDW SD 39.0 fl Normal 35.1-43.9 [facility] Comment on above: Performed By: #### L 100.0100, L500.4050, L501.1400, L501.9910 #### [facility] [address] [place], [address] WBC (Bld) [#/Vol] 4.9 10*3/uL Normal 4.4-11.0 [facility] Comment on above: Performed By: #### L 100.0100, L500.4050, L501.1400, L501.9910 #### [facility] [address] [place], [address] Comprehensive Metabolic Prof [facility] 08-11-2024 Albumin [Mass/Vol] 3.8 g/dL Normal 3.2-5.0 [facility] Comment on above: Performed By: #### L 100.0100, L500.4050, L501.1400, L501.9910 #### [facility] [address] [place], [address] Albumin/Globulin [Mass ratio] 1.1 {ratio} Normal 0.9-2.4 [facility] Comment on above: Performed By: #### L 100.0100, L500.4050, L501.1400, L501.9910 #### [facility] [address] [place], [address] ALK P 70 U/L Normal 45-117 [facility] Comment on above: Performed By: #### L 100.0100, L500.4050, L501.1400, L501.9910 #### [facility] [address] [place], [address] ALT [Catalytic activity/Vol] 27 U/L Normal 16-61 [facility] Comment on above: Performed By: #### L 100.0100, L500.4050, L501.1400, L501.9910 #### [facility] [address] [place], [address] AST [Catalytic activity/Vol] 18 U/L Normal 15-37 [facility] Comment on above: Performed By: #### L 100.0100, L500.4050, L501.1400, L501.9910 #### [facility] [address] [place], [address] Bilirubin [Mass/Vol] 0.40 mg/dL Normal 0.20-1.00 [facility] Comment on above: Result Comment: For patients on eltrombopag therapy, use of Dimension [place] TBIL is not recommended. Performed By: #### L 100.0100, L500.4050, L501.1400, L501.9910 #### [facility] [address] [place], [address] BUN/CRE 14.4 RATIO Normal 10-20 [facility] Comment on above: Performed By: #### L 100.0100, L500.4050, L501.1400, L501.9910 #### [facility] [address] [place], [address] CA,Total 8.8 mg/dL Normal 8.5-10.1 [facility] Comment on above: Performed By: #### L 100.0100, L500.4050, L501.1400, L501.9910 #### [facility] [address] [place], [address] Chloride [Moles/Vol] 107 mmol/L Normal 98-107 [facility] Comment on above: Performed By: #### L 100.0100, L500.4050, L501.1400, L501.9910 #### [facility] [address] [place], [address] CO2 [Moles/Vol] 28.0 mmol/L Normal 21.0-32.0 [facility] Comment on above: Performed By: #### L 100.0100, L500.4050, L501.1400, L501.9910 #### [facility] [address] [place], [address] Creatinine [Mass/Vol] 1.04 mg/dL Normal 0.70-1.30 [facility] Comment on above: Result Comment: The validity of the calculated GFR GFRAA in patients over 70 years has not been determined. Clinical correlation is essential. Performed By: #### L 100.0100, L500.4050, L501.1400, L501.9910 #### [facility] [address] [place], [address] EST GFR - AA 96 mL/min Normal >60 [facility] Comment on above: Result Comment: Afri can [place] GFR Calc Performed By: #### L 100.0100, L500.4050, L501.1400, L501.9910 #### [facility] [address] [place], [address] GAP 5 Normal 5-15 [facility] Comment on above: Performed By: #### L 100.0100, L500.4050, L501.1400, L501.9910 #### [facility] [address] [place], [address] GFR/1.73 sq M.predicted among non-blacks MDRD (S/P/Bld) [Vol rate/Area] 79 mL/min/{1.73_m2} Normal >60 [facility] Comment on above: Result Comment: Non- GFR Calc Performed By: #### L 100.0100, L500.4050, L501.1400, L501.9910 #### [facility] [address] [place], [address] Globulin (S) [Mass/Vol] 3.5 g/dL Normal 2.2-4.2 [facility] Comment on above: Performed By: #### L 100.0100, L500.4050, L501.1400, L501.9910 #### [facility] [address] [place], [address] Glucose [Mass/Vol] 75 mg/dL Normal 74-106 [facility] Comment on above: Performed By: #### L 100.0100, L500.4050, L501.1400, L501.9910 #### [facility] [address] [place], [address] Potassium [Moles/Vol] 3.7 mmol/L Normal 3.5-5.1 [facility] Comment on above: Performed By: #### L 100.0100, L500.4050, L501.1400, L501.9910 #### [facility] [address] [place], [address] Sodium [Moles/Vol] 140 mmol/L Normal 136-145 [facility] Comment on above: Performed By: #### L 100.0100, L500.4050, L501.1400, L501.9910 #### [facility] [address] [place], [address] T PROT 7.3 g/dL Normal 6.4-8.2 [facility] Comment on above: Performed By: #### L 100.0100, L500.4050, L501.1400, L501.9910 #### [facility] [address] [place], [address] Urea nitrogen [Mass/Vol] 15 mg/dL Normal 7-18 [facility] Comment on above: Performed By: #### L 100.0100, L500.4050, L501.1400, L501.9910 #### [facility] [address] [place], [address] PSA,Total - Annual Screenon 08-11-2024 PSA,TOT SCREEN 1.31 ng/mL Normal 0.00-4.00 [facility] Comment on above: Result Comment: This test was performed using the TPSA assay method for the [employer] chemistry system. Values obtained with different assay methods cannot be used interchangably. When changing PSA assays in the course of monitoring a patient, additional sequential testing should be carried out to confirm baseline values. Performed By: #### L 100.0100, L500.4050, L501.1400, L501.9910 #### [facility] [address] [place], [address] Uric Acidon 08-11-2024 URIC 7.3 mg/dL High 3.5-7.2 [facility] Comment on above: Result Comment: The drugs N-Acetylcysteine and Metamizole may falsely depress this assay. Performed By: #### L 100.0100, L500.4050, L501.1400, L501.9910 #### [facility] [address] [place], [place], [address] Clinical Summary: Gladys hasmukh 11-24-2021 [facility] Quick Care Visit Invalid Interpretation Code [facility] Work Phone: [facility] Surgical Pathology Depar tmenton 03-15-2020 [facility] Surgical Pathology Department Name GIULIANO RASHID Pathologist: SUDARSHAN PHILIP MD Date of Procedure: 03/15/2020 Date Received: 03/15/2020 Date Reported 03/18/2020 Submitting Physician: GINA COREY MD Location: [facility] Other External # [id number] FINAL DIAGNOSIS A. DESCENDING COLON, POLYPECTOMY: --TUBULAR ADENOMA. Electronically Signed Out By SUDARSHAN PHILIP MD/MLC By the signature on this report, the individual or group listed as making the Final Interpretation/Diagn osis certifies that they have reviewed this case. Clinical History: Average risk screening Specimens Submitted As: A: DESCENDING COLON POLYP Other Case Numbers [id number] Gross Description: Received in formalin, labeled with the patient's name and hospital number and descending polyp, is a fragment of benson, soft tissue measuring 0.3 x 0.2 x 0.1 cm. The specimen is submitted in toto in one cassette. DPG dpg/03/16/2020 Normal [facility] Comment on above: Performed By: #### U HCS #### [facility] Surgical Pathology Department [address] [facility] [address] CBC with Diffon 11-14-2019 Basophils (Bld) [#/Vol] 0.0 x(10)3/cumm Normal 0.0-0.1 [facility] Comment on above: Performed By: #### C BCDIFF #### [facility] [address] [place] [address] Basophils/100 WBC (Bld) 1.3 % High 0.0-1.0 [facility] Comment on above: Performed By: #### C BCDIFF #### [facility] [address] [place] [address] Eosinophils (Bld) [#/Vol] 0.0 x(10)3/cumm Normal 0.0-0.4 [facility] Comment on above: Performed By: #### C BCDIFF #### [facility] [address] [place] [address] Eosinophils/100 WBC (Bld) 1.2 % Normal 0.0-6.1 [facility] Comment on above: Performed By: #### C BCDIFF #### [facility] [address] [place] [address] Erythrocyte distribution width (RBC) [Ratio] 13.5 % Normal 11.1-15.3 [facility] Comment on above: Performed By: #### C BCDIFF #### [facility] [address] [place] [address] Hematocrit (Bld) [Volume fraction] 45.8 % Normal 37.6-50.6 [facility] Comment on above: Performed By: #### C BCDIFF #### [facility] [address] [place] [address] Hemoglobin (Bld) [Mass/Vol] 15.7 g/dL Normal 12.9-17.5 [facility] Comment on above: Performed By: #### C BCDIFF #### [facility] [address] [place] [address] Lymphocytes (Bld) [#/Vol] 1.3 x(10)3/cumm Normal 0.8-2.9 [facility] Comment on above: Performed By: #### C BCDIFF #### [facility] [address] [place] [address] Lymphocytes/100 WBC (Bld) 33.4 % Normal 12.2-42.6 [facility] Comment on above: Performed By: #### C BCDIFF #### [facility] [address] [place] [address] MCH (RBC) [Entitic mass] 29.3 pg Normal 27.2-33.6 [facility] Comment on above: Performed By: #### C BCDIFF #### [facility] [address] [place] [address] MCHC (RBC) [Mass/Vol] 34.3 g/dL Normal 32.9-35.3 [facility] Comment on above: Performed By: #### C BCDIFF #### [facility] [address] [place], [place] [phone] MCV (RBC) [Entitic vol] 85.3 fL Normal 81.3-96.7 [facility] Comment on above: Performed By: #### C BCDIFF #### [facility] [address] [place], [place] [phone] Monocytes (Bld) [#/Vol] 0.3 x(10)3/cumm Normal 0.2-0.8 [facility] Comment on above: Performed By: #### C BCDIFF #### [facility] [address] [place] [address] Monocytes/100 WBC (Bld) 9.1 % Normal 3.3-11.6 [facility] Comment on above: Performed By: #### C BCDIFF #### [facility] [address] [place] [address] Neutrophils (Bld) [#/Vol] 2.1 x(10)3/cumm Normal 1.3-7.4 [facility] Comment on above: Performed By: #### C BCDIFF #### [facility] [address] [place] [address] Neutrophils/100 WBC (Bld) 55.0 % Normal 44.9-78.8 [facility] Comment on above: Performed By: #### C BCDIFF #### [facility] [address] [place] [address] Platelet mean volume (Bld) [Entitic vol] 8.0 fL Normal 6.4-10.0 [facility] Comment on above: Performed By: #### C BCDIFF #### [facility] [address] [place] [address] Platelets (Bld) [#/Vol] 297 x(10)3/cumm Normal 138-367 [facility] Comment on above: Performed By: #### C BCDIFF #### [facility] [address] [place] [address] Plt Morph Normal [facility] Comment on above: Performed By: #### C BCDIFF #### [facility] [address] [place] [address] RBC (Bld) [#/Vol] 5.37 X(10)6/cumm Normal 4.20-5.80 [facility] Comment on above: Performed By: #### C BCDIFF #### [facility] [address] [place] [address] RBC Morph cont Normal [facility] Comment on above: Performed By: #### C BCDIFF #### [facility] [address] [place] [address] RBC morphology finding Nom (Bld) Normal [facility] Comment on above: Performed By: #### C BCDIFF #### [facility] [address] [place] [address] WBC (Bld) [#/Vol] 3.8 x(10)3/cumm Normal 3.6-10.3 [facility] Comment on above: Performed By: #### C BCDIFF #### [facility] [address] [place] [address] WBC Morph Normal [facility] Comment on above: Performed By: #### C BCDIFF #### [facility] [address] [place] [address] Comprehensive Metabolic Pane gabriel 11-14-2019 Albumin [Mass/Vol] 4.0 g/dL Normal 3.4-5.0 [facility] Comment on above: Order Comment: Hemol yzed specimen; Interpret with caution. Hemolysis may increase K, AST, CK, IRON, FOL, LD, LITH, MG, TIBC, VB12, Lact Ac Performed By: #### L IPID, CMP, TSH #### [facility] [address] [place] [address] ALP [Catalytic activity/Vol] 56 U/L Normal 45-117 [facility] Comment on above: Order Comment: Hemol yzed specimen; Interpret with caution. Hemolysis may increase K, AST, CK, IRON, FOL, LD, LITH, MG, TIBC, VB12, Lact Ac Performed By: #### L IPID, CMP, TSH #### [facility] [address] [place] [address] ALT [Catalytic activity/Vol] 37 U/L Normal 12-78 [facility] Comment on above: Order Comment: Hemol yzed specimen; Interpret with caution. Hemolysis may increase K, AST, CK, IRON, FOL, LD, LITH, MG, TIBC, VB12, Lact Ac Performed By: #### L IPID, CMP, TSH #### [facility] [address] [place] [address] Anion gap [Moles/Vol] 4 mmol/L Low 5-10 [facility] Comment on above: Order Comment: Hemol yzed specimen; Interpret with caution. Hemolysis may increase K, AST, CK, IRON, FOL, LD, LITH, MG, TIBC, VB12, Lact Ac Performed By: #### L IPID, CMP, TSH #### [facility] [address] [place] [address] AST [Catalytic activity/Vol] 25 U/L Normal 15-37 [facility] Comment on above: Order Comment: Hemol yzed specimen; Interpret with caution. Hemolysis may increase K, AST, CK, IRON, FOL, LD, LITH, MG, TIBC, VB12, Lact Ac Performed By: #### L IPID, CMP, TSH #### [facility] [address] [place], [place] [phone] Bili, Total 0.5 mg/dL Normal 0.2-1.0 [facility] Comment on above: Order Comment: Hemol yzed specimen; Interpret with caution. Hemolysis may increase K, AST, CK, IRON, FOL, LD, LITH, MG, TIBC, VB12, Lact Ac Performed By: #### L IPID, CMP, TSH #### [facility] [address] [place], [place] [phone] Calcium [Mass/Vol] 9.3 mg/dL Normal 8.5-10.1 [facility] Comment on above: Order Comment: Hemol yzed specimen; Interpret with caution. Hemolysis may increase K, AST, CK, IRON, FOL, LD, LITH, MG, TIBC, VB12, Lact Ac Performed By: #### L IPID, CMP, TSH #### [facility] [address] [place] [address] Chloride [Moles/Vol] 108 mmol/L High 98-[address] [facility] Comment on above: Order Comment: Hemol yzed specimen; Interpret with caution. Hemolysis may increase K, AST, CK, IRON, FOL, LD, LITH, MG, TIBC, VB12, Lact Ac Performed By: #### L IPID, CMP, TSH #### [facility] [address] [place] [address]28 CO2 [Moles/Vol] 28 mmol/L Normal 21-32 [facility] Comment on above: Order Comment: Hemol yzed specimen; Interpret with caution. Hemolysis may increase K, AST, CK, IRON, FOL, LD, LITH, MG, TIBC, VB12, Lact Ac Performed By: #### L IPID, CMP, TSH #### [facility] [address] [place] [address] Creatinine [Mass/Vol] 1.24 mg/dL Normal 0.60-1.30 [facility] Comment on above: Order Comment: Hemol yzed specimen; Interpret with caution. Hemolysis may increase K, AST, CK, IRON, FOL, LD, LITH, MG, TIBC, VB12, Lact Ac Performed By: #### L IPID, CMP, TSH #### [facility] [address] [place] [address]30 eGFR -Amer >60 Normal >=60 [facility] Comment on above: Order Comment: Hemol yzed specimen; Interpret with caution. Hemolysis may increase K, AST, CK, IRON, FOL, LD, LITH, MG, TIBC, VB12, Lact Ac Performed By: #### L IPID, CMP, TSH #### [facility] [address] [place] [address] GFR/1.73 sq M predicted among non-blacks MDRD (S/P/Bld) [Vol rate/Area] mL/min/{1.73_m2} Normal >=60 [facility] Comment on above: Order Comment: Hemol yzed specimen; Interpret with caution. Hemolysis may increase K, AST, CK, IRON, FOL, LD, LITH, MG, TIBC, VB12, Lact Ac Performed By: #### L IPID, CMP, TSH #### [facility] [address] [place] [address]658 Glucose [Mass/Vol] 90 mg/dL Normal 74-106 [facility] Comment on above: Order Comment: Hemol yzed specimen; Interpret with caution. Hemolysis may increase K, AST, CK, IRON, FOL, LD, LITH, MG, TIBC, VB12, Lact Ac Performed By: #### L IPID, CMP, TSH #### [facility] [address] [place] [address] Potassium [Moles/Vol] 4.8 mmol/L Normal 3.5-5.1 [facility] Comment on above: Order Comment: Hemol yzed specimen; Interpret with caution. Hemolysis may increase K, AST, CK, IRON, FOL, LD, LITH, MG, TIBC, VB12, Lact Ac Performed By: #### L IPID, CMP, TSH #### [facility] [address] [place] [address]64 Prot Total 7.5 gm/dL Normal 6.4-8.2 [facility] Comment on above: Order Comment: Hemol yzed specimen; Interpret with caution. Hemolysis may increase K, AST, CK, IRON, FOL, LD, LITH, MG, TIBC, VB12, Lact Ac Performed By: #### L IPID, CMP, TSH #### [facility] [address] [place] [address]659 Sodium [Moles/Vol] 140 mmol/L Normal 136-145 [facility] Comment on above: Order Comment: Hemol yzed specimen; Interpret with caution. Hemolysis may increase K, AST, CK, IRON, FOL, LD, LITH, MG, TIBC, VB12, Lact Ac Performed By: #### L IPID, CMP, TSH #### [facility] [address] [place] [address]13 Urea nitrogen [Mass/Vol] 15 mg/dL Normal 7-18 [facility] Comment on above: Order Comment: Hemol yzed specimen; Interpret with caution. Hemolysis may increase K, AST, CK, IRON, FOL, LD, LITH, MG, TIBC, VB12, Lact Ac Performed By: #### L IPID, CMP, TSH #### [facility] [address] [place] [address]8717 Lipid Profileon 11-14-2019 Cholesterol [Mass/Vol] 188 mg/dL Normal <=200 [facility] Comment on above: Order Comment: Hemol yzed specimen; Interpret with caution. Hemolysis may increase K, AST, CK, IRON, FOL, LD, LITH, MG, TIBC, VB12, Lact Ac Performed By: #### L IPID, CMP, TSH #### [facility] [address] [place] [address] Cholesterol in HDL [Mass/Vol] 42 mg/dL Normal 40-60 [facility] Comment on above: Order Comment: Hemol yzed specimen; Interpret with caution. Hemolysis may increase K, AST, CK, IRON, FOL, LD, LITH, MG, TIBC, VB12, Lact Ac Performed By: #### L IPID, CMP, TSH #### [facility] [address] [place], [place] [id number] Cholesterol in LDL [Mass/Vol] 128 mg/dL High <=99 [facility] [facility] Comment on above: Order Comment: Hemol yzed specimen; Interpret with caution. Hemolysis may increase K, AST, CK, IRON, FOL, LD, LITH, MG, TIBC, VB12, Lact Ac Performed By: #### L IPID, CMP, TSH #### [facility] [address] [place], [place] [id number] Triglyceride [Mass/Vol] 91 mg/dL Normal <=150 [facility] Comment on above: Order Comment: Hemol yzed specimen; Interpret with caution. Hemolysis may increase K, AST, CK, IRON, FOL, LD, LITH, MG, TIBC, VB12, Lact Ac Performed By: #### L IPID, CMP, TSH #### [facility] [address] [place] [id number] VLDL Calc 18 mg/dL Normal 14-48 [facility] Comment on above: Order Comment: Hemol yzed specimen; Interpret with caution. Hemolysis may increase K, AST, CK, IRON, FOL, LD, LITH, MG, TIBC, VB12, Lact Ac Performed By: #### L IPID, CMP, TSH #### [facility] [address] [place] [id number] PSA Screeningon 11-14-2019 Comment Serum levels of PSA should not be interpreted as absolute evidence of disease. The PSA result should be used in conjunction with other clinical procedures. [facility] Comment on above: Order Comment: Hemol yzed specimen; Interpret with caution. Hemolysis may increase K, AST, CK, IRON, FOL, LD, LITH, MG, TIBC, VB12, Lact Ac Performed By: #### P SAS #### [facility] [address] [place] [address] TSHon 11-14-2019 TSH Qn 2.460 uIU/mL Normal 0.358-3.740 [facility] Comment on above: Order Comment: Hemol yzed specimen; Interpret with caution. Hemolysis may increase K, AST, CK, IRON, FOL, LD, LITH, MG, TIBC, VB12, Lact Ac Performed By: #### L IPID, CMP, TSH #### [facility] [address] [place] [id number] TSH Qn <0.001% of patients express a rare TSH variant which yields falsely low values in this assay. Interpret low TSH values along with T4 and T3 levels and the clinical history. [facility] Comment on above: Order Comment: Hemol yzed specimen; Interpret with caution. Hemolysis may increase K, AST, CK, IRON, FOL, LD, LITH, MG, TIBC, VB12, Lact Ac Performed By: #### L IPID, CMP, TSH #### [address] [address] TSH Qn Concentrations of Biotin in excess of 100ng/ml in patient samples can potentially result in interference of TSH. [facility] Comment on above: Order Comment: Hemol yzed specimen; Interpret with caution. Hemolysis may increase K, AST, CK, IRON, FOL, LD, LITH, MG, TIBC, VB12, Lact Ac Performed By: #### L IPID, CMP, TSH #### [facility] [address] [place] [address] Vital Signs Date Time Vital Sign Value Performing Clinician Facility 03-04-2025 23:32-0400 Body height 180.[address] Gina Rivas MD Work Phone: [facility] 03-04-2025 23:32-0400 Body mass index (BMI) [Ratio] 28.4 kg/m2 Dr. Gina Rivas MD Work Phone: [facility] 03-04-2025 23:32-0400 Body temperature 98.2 [degF] Dr. Gina Rivas MD Work Phone: [facility] 03-04-2025 23:32-0400 Body weight 92.[address] Gina Rivas MD Work Phone: [facility] 03-04-2025 23:32-0400 Diastolic blood pressure 96 mm[Hg] Dr. Gina Rivas MD Work Phone: [facility] 03-04-2025 23:32-0400 Heart rate 59 /min Dr. Gina Rivas MD Work Phone: [facility] 03-04-2025 23:32-0400 Respiratory rate 18 /min Dr. Gina Rivas MD Work Phone: [facility] 03-04-2025 23:32-0400 SaO2% (BldA) [Mass fraction] 100 % Dr. Gina Rivas MD Work Phone: [facility] 03-04-2025 23:32-0400 Systolic blood pressure 150 mm[Hg] Dr. Gina Rivas MD Work Phone: [facility] 03-26-2023 11:07-0400 Diastolic blood pressure 66 mm[Hg] Out [facility] 03-26-2023 11:07-0400 Heart rate 51 /min Out [facility] 03-26-2023 11:07-0400 Respiratory rate 16 /min Out [facility] 03-26-2023 11:07-0400 SaO2% (BldA) [Mass fraction] 98 % Out [facility] 03-26-2023 11:07-0400 Systolic blood pressure 103 mm[Hg] Out [facility] 03-26-2023 10:54-0400 Body temperature 97.1 [degF] Out [facility] 03-26-2023 09:13-0400 Body height 180.34 cm Out [facility] 03-26-2023 09:13-0400 Body mass index (BMI) [Ratio] 26.5 kg/m2 Out [facility] 03-26-2023 09:13-0400 Body weight 86.36 kg Out [facility] 02-10-2023 08:26-0400 Body mass index (BMI) [Ratio] 26.5 kg/m2 Out [facility] 02-10-2023 08:26-0400 Body temperature 97.4 [degF] Out [facility] 02-10-2023 08:26-0400 Body weight 86.35 kg Out [facility] 02-10-2023 08:26-0400 Diastolic blood pressure 73 mm[Hg] Out [facility] 02-10-2023 08:26-0400 Heart rate 60 /min Out [facility] 02-10-2023 08:26-0400 Respiratory rate 18 /min Out [facility] 02-10-2023 08:26-0400 SaO2% (BldA) [Mass fraction] 98 % Out [facility] 02-10-2023 08:26-0400 Systolic blood pressure 115 mm[Hg] Out [facility] 12-14-2022 11:02-0400 Body mass index (BMI) [Ratio] 27 kg/m2 Out [facility] 12-14-2022 11:02-0400 Body weight 87.99 kg Out [facility] 12-14-2022 11:02-0400 Diastolic blood pressure 74 mm[Hg] Out [facility] 12-14-2022 11:02-0400 Heart rate 55 /min Out [facility] 12-14-2022 11:02-0400 Systolic blood pressure 112 mm[Hg] Out [facility] NEGATED: Highlighted [id number] 10:09-0500 Body height 177.8 cm Juanjo Nicolette AT [facility] Work Phone: NEGATED: Highlighted [id number] 10:09-0500 Body height 178 cm Juanjo Nicolette AT [facility] Work Phone: NEGATED: Highlighted [id number] 10:09-0500 Body mass index (BMI) [Ratio] 27.65 kg/m2 Juanjo Will AT [facility] Work Phone: NEGATED: Highlighted [id number] 10:09-0500 Body weight 87.09 kg Juanjo Will AT [facility] Work Phone: NEGATED: Highlighted [id number] 10:09-0500 Body weight 87 kg Juanjo Will AT [facility] Work Phone: Encounters Encounter Date Encounter Type Care Provider Facility Start: 03-22-2025 End: 03-22-[address] Gina Rivas MD Work Phone: [facility] Work Phone: Start: 03-22-2025 End: 03-22-2025 Patient encounter procedure Connie Figueroa [employer] -Laboratory [facility] Start: 03-22-2025 End: 03-22-2025 ambulatory Connie Figueroa Facility:[facility] Start: 03-04-2025 End: 03-05-2025 Emergency department patient visit Dr. Gina Rivas MD Work Phone: -Emergency Department Work Phone: Start: 08-11-2024 End: 08-11-2024 ambulatory Gina Rivas Facility:[facility] Start: 03-26-2023 Non-patient / Non-visit [place] [facility] Start: 03-26-2023 End: 03-26-2023 Admission to same day surgery center [place] [facility] Start: 03-26-2023 End: 03-26-2023 ambulatory Out of Town [facility] Work Phone: Start: 02-10-2023 End: 02-10-2023 Patient encounter procedure Out [facility] Start: 12-14-2022 Patient encounter status [place] Do ctor [facility] Start: 12-14-2022 End: 12-14-2022 Encounter for general adult medical examination without abnormal findings Out [facility] Doctor [facility] Start: 12-14-2022 End: 12-14-2022 Patient encounter procedure Out [facility] Doctor [facility] [place] Start: 08-06-2020 End: 08-07-2020 Patient encounter procedure [facility] Start: 03-15-2020 End: 03-15-2020 Patient encounter procedure [facility] Start: 11-14-2019 End: 11-15-2019 Patient encounter procedure [facility] Procedures Date Procedure Procedure Detail Performing Clinician Start: 03-26-2023 Esophagogastroduodenoscopy Out [facility] Doctor Start: 11-24-2021 End: 11-24-2021 BP scrn no perf at interval Ritika Salazar neptali PA-C Work Phone: Start: 11-24-2021 End: 11-24-2021 Calc BMI abv up abdoul f/u Ritika Alvaradobrittni noe PA-C Work Phone: Start: 11-24-2021 End: 11-24-2021 CLASSIC WRIST BRACE 8 (BREG) Ritika Serrano Milagro baeza PA-C Work Phone: Start: 11-24-2021 End: 11-24-2021 Current tobacco non-user cad cap copd pv dm Ritika Serrano Casimiro PA-C Work Phone: Start: 11-24-2021 End: 11-24-2021 Docrev cur meds by kaylan aguirre Ritika Humphreydarleen driscoll PA-C Work Phone: Start: 11-24-2021 End: 11-24-2021 Pain doc pos and plan Ritika Serrano Casimiro PA-C Work Phone: Start: 11-24-2021 End: 11-24-2021 Patient encounter procedure Ritika Salazar neptali PA-C Work Phone: Start: 11-14-2019 [object Object] [facility]LS[facility] Comment on above: Order Comment: Hemol yzed specimen; Interpret with caution. Hemolysis may increase K, AST, CK, IRON, FOL, LD, LITH, MG, TIBC, VB12, Lact Ac Performed By: #### P SAS #### [facility] [address] [place] [id number] NEGATED: Highlighted rowStart: 11-24-2021 End: 11-24-2021 Documentation of current medications Juanjo Corteser AT Plan of Treatment Date Care Activity Detail Author Start: 03-05-2025 [facility] Start: 03-26-2023 Patient discharge [facility] Start: 12-14-2022 Patient referral [facility] Work Phone: Start: 11-24-2021 End: 11-24-2021 Patient encounter procedure Appointment [facility] Work Phone: Start: 11-24-2021 End: 11-24-2021 Radex hand minimum 3 views XR HAND 3+ VWS-LT [facility] Work Phone: CBC W Auto Different ial panel - Blood [facility] Lipid 1996 panel - S caroline or Plasma [facility] Patient Education ED Gout ED Gout Diet [facility] Work Phone: Patient referral [facility] Work Phone: Prostate specific antigen measurement [facility] Vitamin D, 25-hydrox y measurement General acute hospital Payers Date Payer Category Payer Self-pay 2024 Unknown [id number] 1970 Unknown [id number] [id number] [id number] 1970 Unknown [id number] 2.16.8 [id number] 1970 Unknown [id number] 2.16.8 [id number] Unknown [id number] Unknown ANTHEM [id number] Unknown [facility] [id number] Unknown [id number] 2.16.8 [id number] Unknown [id number] 2.16.8 [id number] Unknown [id number] 2.16.8 [id number] Social History Date Type Detail Facility Start: 11-24-2021 End: 11-24-2021 Assertion Unknown if ever smoked [facility] [employer] Work Phone: Start: 1970 Sex Assigned At Male W [facility] Start: 03-04-2025 Tobacco smoking status NHIS Ex-smoker (finding) [facility] NEGATED: Highlighted rowStart: 11-24-2021 End: 11-24-2021 Employment detail Employment detail [facility] [employer] Work Phone: Goals Date Patient Goal Desired Activity /State Mental Status Date Assessment Result Facility 03-26-2023 Cognitive function Level Of Cons ciousness Awake;Appropriate [facility] Work Phone: 03-26-2023 Cognitive function Voice/Name [facility] Work Phone: Procedure note 03-26-2023 Note Date & Type Note Facility 03-26-2023 Procedure note [facility] Procedure note 03-26-2023 Note Date & Type Note Facility 03-26-2023 Procedure note [facility] Instructions 11-24-2021 Note Date & Type Note Facility 11-24-2021 Instructions Patient advised to follow-up with Primary Care Physician for BMI management. [facility] [employer] Work Phone: Evaluation note Note Date & Type Note Facility Evaluation note There may be informa tion available, but it has not been provided by the sender. [facility] [employer] Work Phone: Evaluation note Note Date & Type Note Facility Evaluation note Diagnosis Onset Date Chronic reflux esophagitis a cute Encounter for wellness examination in adult acute Encounter to establish care noneactive Gastroesophageal reflux disease noneactive [facility] Work Phone: Evaluation note Note Date & Type Note Facility Evaluation note No assessment information availa ble [facility] Work Phone: History and physical note Note Date & Type Note Facility History and physical note Note Date/Time March 26, 2023 9:49am [facility] Medical Records Department [address] [place] [address] History & Physical Exam 03/26/23 0949 MR#: [id number] Acct: [id number] Name: GIULIANO RASHID Rep #:[id number] : 1970 52 From: Luis Wesley MD PCP: Dr. Ronda Paiz MD Status:[facility] Location: [place] [address] History and Physical Date of Admission: 03/26/23 [...] colonoscopy in 2019.? These were performed in [place].? The patient's current concern is long-term reflux [...] healthy appearing, comfortable and no acute distress [facility] Head: normal to inspection Eyes General: appearance [...] Paiz MD; Dr. Luis Wesley MD~ Signed [facility] Work Phone: Hospital Discharge instructions Note [...] return to the ER for repeat evaluation [facility] Work Phone: Reason for referral (narrative) Note Date & Type Note Facility Reason for referral (narrative) No reason for referral information available [facility] Work Phone: Summary Purpose Family History No Family History Records Found Relationship Condition Age at Onset Recorded Date/T silvia grandmother Asthma Unknown mother Malignant neoplasm of breast Unknown father Depression Unknown grandfather Parkinson's disease Unknown Advance Directives No Advanced Directives Records Found Advance Directive Response Recorded Date/ Time Living Will No March 23, 2023 1:41pm Power of Director Of Early Childhood Education No March 23 1:41pm Advance Directive Response Recorded Date/ Time Do you have a Healthcare Power of Director Of Early Childhood Education? No March 04, 2025 11:34pm Chief Complaint [...] section and content) DATE CREATED AUTHOR 03/18/2020 [facility] DATE CREATED AUTHOR AUTHOR'S ORGANIZ ATION 08/08/2020 [facility] DATE CREATED AUTHOR AUTHOR'S ORGANIZ ATION 03/28/2025 [facility] Reason for Visit (unrecogniz ed section and content) Reason For Visit Description New - 1st visit with practice Preliminary reason f or visit data, not yet signed by the author as of left wrist pain Care Teams (unrecognized sec tion and content) Team Status: Active Member Role Status Dates Out of [facility] Doctor Family Provider Active Dr. Ronda Paiz MD Primary Care Provider Active Team Status: Inactive Member Role Status Dates Out of Town Doctor Primary Care Provider Active Dr. Ronda Paiz MD Attending Provider Active Team Status: Inactive Member Role Status Dates Dr. Ronda Paiz MD Primary Care Provider, Referri Provider Active Dr. Luis Wesley MD Attending Provider Active Team Status: Active Member Role Status Dates Dr. Ronda Paiz MD Primary Care Provider, Referri ng Provider Active Dr. Luis Wesley MD Attending Provider, Other Prov ider Active Team Status: Active Member Role Status Dates Dr. Gina Rivas MD Primary Care Provider Active Team Status: Inactive Member Role Status Dates Dr. Gina Rivas MD Primary Care Provider Active Start: March 04, 2025 End: March 05, 2025 Dr. Joselito Saucedo DO Emergency Provider Active Start: March 04, 2025 End: March 05, 2025 Team Status: Inactive Member Role Status Dates Dr. Gina Rivas MD Primary Care Provider Active Start: March 04, 2025 End: March 05, 2025 Dr. Joselito Saucedo DO Attending Provider Active Start: March 04, 2025 End: March 05, 2025 Dr. Joselito Saucedo DO Emergency Provider Active Start: March 04, 2025 End: March 05, 2025 Team Status: Inactive Member Role Status Dates Dr. Gina Rivas MD Primary Care Provider Active Start: March 22, 2025 End: March 22, 2025 Connie Figueroa NP, [employer] Attending Provider Active Start: March 22, 2025 End: March 22, 2025 Goals (unrecognized section and content) Goals may be documented in a n alternate sectionGoals may be documented in an alternate section FOR RECORDS PERTAINING TO PATIENTS [...] BE BASED ON THE PRIMARY CLINICAL RECORDS. [employer] provides no warranty or guarantee of the accuracy or completeness of information in this document.
[2025-05-04 11:29] LABS: Uric Acid 7.2 mg/dL (3.5-7.2)
== END | disposition home or self-care (01) ==
LOC: MTLAB 07:09
PROVIDERS: PCP Family Medicine; Referring Provider Family Medicine; Visit Provider Family Medicine
DX: M10.9 Gout, unspecified (principal)
CPT/HCPCS: 36415; 84550

== ENCOUNTER → 2025-07-04 | Outpatient (CLI) | payer OTHER, SELFPAY ==
[2025-07-04 10:06] LABS: Hematocrit 41.5 % (40-54); Hemoglobin 15.0 g/dL (13.0-16.5); Mean Corp Hgb Conc 36.1 g/dL (32-36); Mean Corpuscular Volume 82.5 fL (80-94); Mean Platelet Vol. 9.4 fl (6.2-12.0); Platelet Count 287 K/mm3 (150-450); RBC Distribution Width CV 12.9 % (11.6-14.6); RBC Distribution Width SD 38.7 fl (35.1-43.9); Red Blood Count 5.03 M/mm3 (4.6-6.2); White Blood Count 4.4 K/mm3 (4.4-11.0)
[2025-07-04 10:26] LABS: AST(SGOT) 25 U/L (<=37); Alanine Aminotransfer ALT/SGPT 24 U/L (<=46); Albumin, Serum 4.2 g/dL (3.5-5.0); Alkaline Phosphatase 55 U/L (40-129); Anion Gap 10 (5-15); BUN 17 mg/dL (4-19); BUN/Creat Ratio 14.9 RATIO (10-20); Calcium,Total 9.1 mg/dL (7.6-11.0); Carbon Dioxide 24.6 mmol/L (21.0-32.0); Chloride 107 mmol/L (98-108); Globulin 2.5 g/dL (2.2-4.2); Glucose 97 mg/dL (70-99); Potassium 4.5 mmol/L (3.3-5.1)
[2025-07-04 10:36] LABS: Uric Acid 6.7 mg/dL (3.5-7.2)
== END | disposition home or self-care (01) ==
LOC: MFPLAB 08:44
PROVIDERS: Family Medicine; PCP Family Medicine; Visit Provider Family Medicine
DX: M10.9 Gout, unspecified (principal)
CPT/HCPCS: 36415; 80053; 84550; 85027